=== PATIENT | female | born 1930 | race Caucasian/White ===

== ENCOUNTER 2016-11-04 11:04 | Inpatient (IN) | payer OTHER ==
[2016-11-04] MEDS ORDERED: NITROGLYCERIN 0.4 MG TAB.SUBL SL ONE (11:29)
[2016-11-04] MEDS ORDERED: ASPIRIN EC 325 MG TABLET.DR PO ONE (11:30)
--- NOTE | 2016-11-04 11:35 | ED Physician Documentation ---
General Adult - HISTORIAN Historian: patient - HPI Stated Complaint: nausea, vomiting, headache Chief Complaint: Nausea,Vomiting,Diarrhea Timing: still present Severity: mild Further Comments: yes (85 yo female presents via EMS with c/o headache, chest pressure and found to have elevated blood pressure by EMS. Pt has history of HTN she says but according to her records, does not take any blood pressure meds. She says her adult family home program manager has not come for 2 days and thus she had not had any of her PO medications at home. 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 pt c/o generalized headache with mild chest pressure and nausea. No SOA. Pt with known CAD) - ROS CONST: no problems - PAST HX Past History: AMI Other History: diabetes Type 2 Allergies/Adverse Reactions: Allergies Allergy/AdvReac Type Severity Reaction Status Date / Time prochlorperazine maleate Allergy Unknown Verified 11/04/16 11:21 [From Compazine] codeine [Codeine] Allergy Verified 11/04/16 11:21 prochlorperazine edisylate Allergy Verified 11/04/16 11:21 [From Compazine] - SOCIAL HX Smoking History: non-smoker - FAMILY HX Family History: Yes - VITAL SIGNS Vital Signs: Vital Signs Temp Pulse Resp BP Pulse Ox 97.8 F 78 18 228/113 95 11/04/16 11:22 11/04/16 11:22 11/04/16 11:22 11/04/16 11:22 11/04/16 11:22 - REVIEWED ASSESSMENTS Nursing Assessment Reviewed: Yes Vitals Reviewed: Yes Progress - Progress Progress: Initial blood pressure improved prior to admission, 177/78. Discussed with Dr Williamson, will admit ED Results Lab/Radiology - Orders Orders: ED Orders Category Date Time Status CHEST 1 VIEW [RAD] Stat Exams 11/04/16 Ordered CBC/PLATELET/DIFF Routine Lab 11/04/16 11:30 Received CMP [CMP] Routine Lab 11/04/16 11:30 Received TROPONIN I (cTnI) Stat Lab 11/04/16 11:30 Received Aspirin EC [Ecotrin] Med 11/04/16 11:30 Discontinued 325 mg PO NOW ONE Nitroglycerin [Nitroquick] Med 11/04/16 11:29 Discontinued 0.4 mg SL NOW ONE EKG WITH COMPARISON Stat Ther 11/04/16 Ordered General Adult Physical Exam - PHYSICAL EXAM GENERAL APPEARANCE: no distress EENT: ENT inspection normal, pharynx normal, JAMILA, TM's nml NECK: normal inspection RESPIRATORY: no resp distress, breath sounds normal CVS: reg rate & rhythm, heart sounds normal ABDOMEN: soft, no organomegaly, normal bowel sounds SKIN: warm/dry NEURO: oriented X3, CN's nml as tested, motor nml, sensation nml, mood/affect nml Discharge Clincal Impression: Hypertensive urgency Condition: Good Disposition: 09 ADMITTED INPATIENT Decision to Admit: NO Decision Time: 12:56
[2016-11-04 11:41] LABS: EOSINOPHILS % 0.3 % (0.0-6.8); LYMPHOCYTES # 0.7 # k/uL (0.6-4.0); MEAN CORPUSCULAR HEMOGLOBIN 33.3 pg (28.0-34.0); MONOCYTES # 0.2 # k/uL (0.0-0.9); MONOCYTES % 5.3 % (0.0-11.0); NEUTROPHILS # 3.3 # k/uL (1.4-7.7)
[2016-11-04] MEDS ORDERED: ONDANSETRON HCL/PF 4 MG/ 2ML VIAL IVP ONE (11:41)
[2016-11-04] MEDS ORDERED: ONDANSETRON HCL/PF 4 MG/ 2ML VIAL ONE (11:41)
[2016-11-04 11:52] LABS: eGFR (African) > 60; eGFR (Non-African) > 60
[2016-11-04] MEDS ORDERED: fentaNYL CITRATE/PF 100 MCG/ 2ML AMP IVP ONE (12:18)
[2016-11-04] MEDS ORDERED: LABETALOL HCL 100MG/20ML VIAL IVP STA (12:28)
--- NOTE | 2016-11-04 13:50 | History and Physical Report ---
History of Present Illnes - History of Present Illness Reason for Visit: Vomiting. History of Present Illness: Patient presented to the ER with n/v/d. She also noted headache and chest pressure. BP was in the 200's. When BP was lowered, patient felt much better. Unable to keep anything down the past few days. Lives alone. Has been in and out of nursing homes due to her inability to take care of herself. I talked to [facility], who has been taking care of her, who reports she has been doing ok at home with their help. She has not been on BP meds in several years but has a h/o HTN. She reports she hasn't taken any of her meds in 2 days because home health couldn't get there. She has had a long h/o falls and BP had been on the soft side, so BP meds discontinued to try to prevent falls from orthostatis. 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 negative: Fever Eyes: negative: pain ENT: negative: Nose Discharge Respiratory: negative: Cough, Shortness of Breath Cardiovascular: negative: Chest Pain Gastrointestinal: Nausea, Vomiting, Diarrhea. negative: Abdominal Pain Genitourinary: negative: Dysuria Musculoskeletal: Back Pain (chronic) Skin: negative: Rash Neurological: Weakness - Medications/Allergies Allergies/Adverse Reactions: Allergies Allergy/AdvReac Type Severity Reaction Status Date / Time prochlorperazine maleate Allergy Unknown Verified 11/04/16 11:21 [From Compazine] codeine [Codeine] Allergy Verified 11/04/16 11:21 prochlorperazine edisylate Allergy Verified 11/04/16 11:21 [From Compazine] Current Inpatient Medications: Current Inpatient Medications Acetaminophen (Tylenol) 650 mg PO Q6H PRN PRN Reason: Fever >101 Enoxaparin Sodium (Lovenox) 30 mg SQ QD [facility] Stop: 11/18/16 13:59 Sodium Chloride (Normal Saline) 1,000 mls @ 100 mls/hr IV Q10H [facility] Pantoprazole Sodium 40 mg/ (Sodium Chloride) 50 mls @ 100 mls/hr IV DAILY [facility] Metoprolol Tartrate (Lopressor) 25 mg PO BID [facility] Ondansetron HCl (Zofran 4 Mg/2 Ml) 4 mg IVP Q6H PRN PRN Reason: Nausea / Vomiting Exam - Exam General: Alert, Oriented to Person, Oriented to Place, Oriented to Time, Cooperative, No acute distress HEENT: Atraumatic, PERRLA, EOMI, Mouth Mucous membr. moist/[place], Nose Mucous membr. moist/[place] Neck: Normal Range of Motion Lungs: Clear to auscultation, Normal air movement, Speaks full Sentences Cardiovascular: Regular rate Abdomen: Normal bowel sounds, Soft, No tenderness Integumentary: Normal Extremities: No edema Neurological: Normal gait Psych/Mental Status: Mental status NL Assessment/Plan - Assessment/Plan (1) Diabetes Status: Acute Current Visit: Yes Plan: Monitor BS. (2) Hypertensive urgency Status: Acute Current Visit: Yes Plan: Monitor BP closely and adjust meds as needed. (3) Dehydration Status: Acute Current Visit: No (4) Gastroenteritis presumed infectious Status: Acute Current Visit: No Plan: Will do IVF. Zofran prn. CLD as tolerated. VTE Assessment - RISK FACTOR SCORE VTE RISK FACTOR SCORES: AGE OVER 60 YEARS, ACUTE INFECTION OTHER THEN SEPSIS, ANTICIPATED BED CONFINEMENT OR IMMOBILIZATION > 24 HOURS - RISK VTE HIGH RISK: SCORE OF 3-4 (RISK PROXIMAL DVT 4-8%) PROPHYLAXIS NEEDED
[2016-11-04] MEDS ORDERED: ENOXAPARIN SODIUM 40 MG/0.4 ML DISP.SYRIN SQ ONE (13:56)
[2016-11-04] MEDS ORDERED: PANTOPRAZOLE SODIUM INJ. 40 MG VIAL ONE (14:04)
[2016-11-04] MEDS ORDERED: 0.9 % SODIUM CHLORIDE 50 ML IV ONE (14:05)
[2016-11-04] MEDS: ENOXAPARIN SODIUM 30 MG/0.3 ML DISP.SYRIN SQ SCH (14:08)
[2016-11-04] MEDS: 0.9 % SODIUM CHLORIDE 1,000 ML IV SCH (14:08)
[2016-11-04] MEDS: METOPROLOL TARTRATE 50 MG TABLET PO SCH ×2 (14:09→20:14)
[2016-11-04] MEDS: PANTOPRAZOLE SODIUM 40 MG in 0.9 % SODIUM CHLORIDE 50 ML IV SCH (14:37)
[2016-11-04] MEDS: ACETAMINOPHEN 325 MG TABLET PO PRN (14:39)
[2016-11-04 15:51] VITALS: BMI 22.3
[2016-11-04] MEDS: ONDANSETRON HCL/PF 4 MG/ 2ML VIAL IVP PRN (17:48)
[2016-11-05] MEDS: ONDANSETRON HCL/PF 4 MG/ 2ML VIAL IVP PRN ×2 (00:42→17:01)
[2016-11-05] MEDS: 0.9 % SODIUM CHLORIDE 1,000 ML IV SCH ×3 (00:42→20:22)
[2016-11-05] MEDS: ACETAMINOPHEN 325 MG TABLET PO PRN ×2 (01:57→18:46)
[2016-11-05] MEDS ORDERED: SALINE FLUSH 10 ML DISP.SYRIN IVF ONE (05:37)
[2016-11-05 07:12] LABS: BASOPHILS % 0.3 (0.0-1.5); EOSINOPHILS % 0.4 % (0.0-6.8); LYMPHOCYTES # 1.3 # k/uL (0.6-4.0); MEAN CORPUSCULAR HEMOGLOBIN 33.3 pg (28.0-34.0); MONOCYTES # 0.2 # k/uL (0.0-0.9); MONOCYTES % 5.1 % (0.0-11.0); NEUTROPHILS # 2.7 # k/uL (1.4-7.7)
[2016-11-05 07:35] LABS: eGFR (African) > 60; eGFR (Non-African) > 60
--- NOTE | 2016-11-05 07:46 | Inpatient Progress Note ---
Subjective - Required Recertification Statement I anticipate X number of days because-include discharge plan: 2 - Review of Systems Subjective: Patient still very nauseated and unable to eat. BP remains high despite starting metoprolol. Norvasc started last night. No headache today. Objective - Exam Vitals and I&O: Vital Signs Temp 97.7 F 11/05/16 06:00 Pulse 60 11/05/16 06:00 Resp 20 11/05/16 06:00 BP 183/75 11/05/16 06:00 Pulse Ox 94 11/05/16 06:00 Intake & Output 11/04/16 11/04/16 11/05/16 11:59 23:59 11:59 Intake Total 60 1200 Output Total 125 400 Balance -65 800 Weight 55.338 kg Intake: IV 1200 Right Hand 1200 Oral 60 Output: Urine 125 400 Other: Voiding Method Toilet General: Alert, Oriented to Person, Oriented to Place, Oriented to Time, Cooperative, No acute distress Lungs: Clear to auscultation, Normal air movement, Speaks full Sentences Cardiovascular: Regular rate Abdomen: Normal bowel sounds, Soft, No tenderness - Results Results: Laboratory Results WBC 4.40 K/ul (4.00-12.00) 11/05/16 06:50 RBC 3.26 M/ul (3.90-5.20) L 11/05/16 06:50 Hgb 10.9 g/dL (12.0-16.0) L 11/05/16 06:50 Hct 33.2 % (34.5-46.5) L 11/05/16 06:50 MCV 101.9 fl (80.0-100.0) H 11/05/16 06:50 MCH 33.3 pg (28.0-34.0) 11/05/16 06:50 MCHC 32.7 g/dL (30.0-36.0) 11/05/16 06:50 RDW 13.0 % (11.3-14.3) 11/05/16 06:50 Plt Count 147 K/mm3 (130-400) 11/05/16 06:50 Neut % (Auto) 62.0 % (39.0-79.0) 11/05/16 06:50 Lymph % (Auto) 29.9 % (16.0-50.0) 11/05/16 06:50 [place] % (Auto) 5.1 % (0.0-11.0) 11/05/16 06:50 Eos % (Auto) 0.4 % (0.0-6.8) 11/05/16 06:50 Baso % (Auto) 0.3 (0.0-1.5) 11/05/16 06:50 Neut # 2.7 # k/uL (1.4-7.7) 11/05/16 06:50 Lymph # 1.3 # k/uL (0.6-4.0) 11/05/16 06:50 [place] # 0.2 # k/uL (0.0-0.9) 11/05/16 06:50 Eos # 0.0 # k/uL (0.0-0.6) 11/05/16 06:50 Baso # 0.0 # k/uL (0.0-0.5) 11/05/16 06:50 Reactive Lymphs % 2.3 % (0.0-5.0) 11/05/16 06:50 Reactive Lymphs # 0.1 # k/uL (0.0-0.8) 11/05/16 06:50 Sodium 142 mmol/L (136-145) 11/05/16 06:50 Potassium 4.2 mmol/L (3.5-5.0) 11/05/16 06:50 Chloride 110 mmol/L (98-110) 11/05/16 06:50 Carbon Dioxide 25 mmol/L (20-32) 11/05/16 06:50 BUN 18 mg/dL (10-26) 11/05/16 06:50 Creatinine 0.9 mg/dL (0.4-1.5) 11/05/16 06:50 Estimated Creat Clear 47 11/05/16 06:50 Est GFR ( Amer) > 60 (60-) 11/05/16 06:50 Est GFR (Non-Af Amer) > 60 (60-) 11/05/16 06:50 Glucose 152 mg/dL (70-99) H 11/05/16 06:50 Calcium 9.1 mg/dL (8.5-10.5) 11/05/16 06:50 Total Bilirubin 0.5 mg/dL (0.2-1.2) 11/04/16 11:30 AST 25 U/L (0-41) 11/04/16 11:30 ALT 12 U/L (0-45) 11/04/16 11:30 Alkaline Phosphatase 113 U/L (46-116) 11/04/16 11:30 Troponin I < 0.03 ng/mL (0.03-0.06) L 11/04/16 11:30 Total Protein 7.6 g/dL (6.0-8.5) 11/04/16 11:30 Albumin 4.6 g/dL (3.0-5.5) 11/04/16 11:30 Assessment/Plan - Assessment/Plan (1) Diabetes Status: Acute Current Visit: Yes (2) Hypertensive urgency Status: Acute Current Visit: Yes Plan: Add ARB today with h/o DM. (3) Dehydration Status: Acute Current Visit: No (4) Gastroenteritis presumed infectious Status: Acute Current Visit: No Plan: Cont. CLD as tolerated, IVF, IV PPI, and IV zofran.
--- NOTE | 2016-11-05 08:39 | Diagnostic Imaging Report ---
[facility] [address] [facility].[address] [id number] Report Submission Date: Nov 04, 2016 12:36:07 PM DATA ENTRY EMAIL PROCESSOR Patient Study Name: LEONARD MELGOZA Date: Nov 04, 2016 11:59:30 AM DATA ENTRY EMAIL PROCESSOR Modality Type: CR Gender: F Description: CHEST : [birth year] Institution: [facility] Physician CYRUS VASQUEZ - ER Chest -one view CLINICAL HISTORY: Chest pain. Hypertension. FINDINGS: Examination of the chest single portable AP view 11/04/2016 1159 hr with comparison to examination 03/31/2016 demonstrates cardiomegaly and aortic atherosclerosis. There are multiple sternotomy wires. Lungs are free of coalescent infiltrate. There is mild crowding of the vascular markings. Monitor leads superimpose the chest. IMPRESSION: Cardiomegaly and aortic atherosclerosis. Postoperative chest. No significant change. Electronically signed on Nov 04, 2016 12:36:07 PM DATA ENTRY EMAIL PROCESSOR by: René FOSTER
[2016-11-05] MEDS ORDERED: amLODIPine BESYLATE 5 MG TABLET PO SCH ×2 (09:00)
[2016-11-05] MEDS: PANTOPRAZOLE SODIUM 40 MG in 0.9 % SODIUM CHLORIDE 50 ML IV SCH (10:12)
[2016-11-05] MEDS: METOPROLOL TARTRATE 50 MG TABLET PO SCH ×2 (10:13→20:21)
[2016-11-05] MEDS: LOSARTAN POTASSIUM 50 MG TABLET PO SCH (10:18)
[2016-11-05] MEDS: ENOXAPARIN SODIUM 30 MG/0.3 ML DISP.SYRIN SQ SCH (14:16)
[2016-11-05] MEDS ORDERED: amLODIPine BESYLATE 5 MG TABLET PO ONE (21:22)
[2016-11-06] MEDS: 0.9 % SODIUM CHLORIDE 1,000 ML IV SCH ×2 (07:31→18:23)
[2016-11-06] MEDS: ONDANSETRON HCL/PF 4 MG/ 2ML VIAL IVP PRN ×2 (07:41→20:28)
[2016-11-06] MEDS: ACETAMINOPHEN 325 MG TABLET PO PRN ×2 (08:00→20:28)
[2016-11-06] MEDS ORDERED: hydrALAZINE HCL 20 MG/1 ML IVP ONE (08:04)
--- NOTE | 2016-11-06 08:08 | Inpatient Progress Note ---
Subjective - Required Recertification Statement I anticipate X number of days because-include discharge plan: 2 - Review of Systems Subjective: Patient still very nauseated and unable to eat. BP remains high high this am.. Reports headache and nausea. Objective - Exam Vitals and I&O: Vital Signs Temp 98.0 F 11/06/16 06:00 Pulse 66 11/06/16 06:00 Resp 18 11/06/16 06:00 BP 147/74 11/06/16 06:00 Pulse Ox 96 11/06/16 06:00 Intake & Output 11/05/16 11/05/16 11/06/16 11:59 23:59 11:59 Intake Total 5482 478 6557 Output Total 400 800 600 Balance 900 -700 1800 Intake: IV 1200 2400 Right Hand 1200 2400 Oral 100 100 Output: Urine 400 800 600 Other: # Voids 1 # Bowel Movements 0 General: Alert, Oriented to Person, Oriented to Place, Oriented to Time, Cooperative, Mild distress Lungs: Clear to auscultation, Normal air movement, Speaks full Sentences Cardiovascular: Regular rate - Results Results: Laboratory Results WBC 4.40 K/ul (4.00-12.00) 11/05/16 06:50 RBC 3.26 M/ul (3.90-5.20) L 11/05/16 06:50 Hgb 10.9 g/dL (12.0-16.0) L 11/05/16 06:50 Hct 33.2 % (34.5-46.5) L 11/05/16 06:50 MCV 101.9 fl (80.0-100.0) H 11/05/16 06:50 MCH 33.3 pg (28.0-34.0) 11/05/16 06:50 MCHC 32.7 g/dL (30.0-36.0) 11/05/16 06:50 RDW 13.0 % (11.3-14.3) 11/05/16 06:50 Plt Count 147 K/mm3 (130-400) 11/05/16 06:50 Neut % (Auto) 62.0 % (39.0-79.0) 11/05/16 06:50 Lymph % (Auto) 29.9 % (16.0-50.0) 11/05/16 06:50 [place] % (Auto) 5.1 % (0.0-11.0) 11/05/16 06:50 Eos % (Auto) 0.4 % (0.0-6.8) 11/05/16 06:50 Baso % (Auto) 0.3 (0.0-1.5) 11/05/16 06:50 Neut # 2.7 # k/uL (1.4-7.7) 11/05/16 06:50 Lymph # 1.3 # k/uL (0.6-4.0) 11/05/16 06:50 [place] # 0.2 # k/uL (0.0-0.9) 11/05/16 06:50 Eos # 0.0 # k/uL (0.0-0.6) 11/05/16 06:50 Baso # 0.0 # k/uL (0.0-0.5) 11/05/16 06:50 Reactive Lymphs % 2.3 % (0.0-5.0) 11/05/16 06:50 Reactive Lymphs # 0.1 # k/uL (0.0-0.8) 11/05/16 06:50 Sodium 142 mmol/L (136-145) 11/05/16 06:50 Potassium 4.2 mmol/L (3.5-5.0) 11/05/16 06:50 Chloride 110 mmol/L (98-110) 11/05/16 06:50 Carbon Dioxide 25 mmol/L (20-32) 11/05/16 06:50 BUN 18 mg/dL (10-26) 11/05/16 06:50 Creatinine 0.9 mg/dL (0.4-1.5) 11/05/16 06:50 Estimated Creat Clear 47 11/05/16 06:50 Est GFR ( Amer) > 60 (60-) 11/05/16 06:50 Est GFR (Non-Af Amer) > 60 (60-) 11/05/16 06:50 Glucose 152 mg/dL (70-99) H 11/05/16 06:50 Calcium 9.1 mg/dL (8.5-10.5) 11/05/16 06:50 Total Bilirubin 0.5 mg/dL (0.2-1.2) 11/04/16 11:30 AST 25 U/L (0-41) 11/04/16 11:30 ALT 12 U/L (0-45) 11/04/16 11:30 Alkaline Phosphatase 113 U/L (46-116) 11/04/16 11:30 Troponin I < 0.03 ng/mL (0.03-0.06) L 11/04/16 11:30 Total Protein 7.6 g/dL (6.0-8.5) 11/04/16 11:30 Albumin 4.6 g/dL (3.0-5.5) 11/04/16 11:30 Assessment/Plan - Assessment/Plan (1) Diabetes Status: Acute Current Visit: Yes (2) Hypertensive urgency Status: Acute Current Visit: Yes Plan: BP 230 so IV hydralzine ordered. Before given, BP down to 208. After injection , down to 170. Will start po hydralazine and increase lopressor. (3) Dehydration Status: Acute Current Visit: No (4) Gastroenteritis presumed infectious Status: Acute Current Visit: No Plan: Improving.
[2016-11-06] MEDS: METOPROLOL TARTRATE 50 MG TABLET PO SCH ×2 (09:08→20:25)
[2016-11-06] MEDS: LOSARTAN POTASSIUM 50 MG TABLET PO SCH (09:10)
[2016-11-06] MEDS: PANTOPRAZOLE SODIUM 40 MG in 0.9 % SODIUM CHLORIDE 50 ML IV SCH (09:11)
[2016-11-06] MEDS ORDERED: LOSARTAN POTASSIUM 50 MG TABLET PO SCH (12:48)
[2016-11-06] MEDS: ENOXAPARIN SODIUM 30 MG/0.3 ML DISP.SYRIN SQ SCH (12:54)
[2016-11-06] MEDS ORDERED: HYDRALAZINE HCL 25 MG TABLET PO SCH (13:00)
[2016-11-06] MEDS ORDERED: MORPHINE SULFATE 2 MG/ML DISP.SYRIN IVP ONE (14:43)
[2016-11-06] MEDS: HYDRALAZINE HCL 25 MG TABLET PO SCH ×2 (16:43→20:26)
[2016-11-06] MEDS ORDERED: amLODIPine BESYLATE 5 MG TABLET PO ONE (20:57)
[2016-11-06] MEDS ORDERED: amLODIPine BESYLATE 5 MG TABLET PO SCH (21:00)
[2016-11-07] MEDS: 0.9 % SODIUM CHLORIDE 1,000 ML IV SCH ×2 (04:19→13:10)
[2016-11-07] MEDS ORDERED: NITROGLYCERIN 0.4 MG TAB.SUBL SL ONE (05:01)
[2016-11-07] MEDS ORDERED: NITROGLYCERIN 0.4 MG TAB.SUBL SL STA (05:27)
[2016-11-07] MEDS: ACETAMINOPHEN 325 MG TABLET PO PRN (05:28)
[2016-11-07 05:55] LABS: BASOPHILS % 0.2 (0.0-1.5); EOSINOPHILS % 0.5 % (0.0-6.8); LYMPHOCYTES # 1.3 # k/uL (0.6-4.0); MONOCYTES # 0.4 # k/uL (0.0-0.9); MONOCYTES % 6.5 % (0.0-11.0); NEUTROPHILS # 4.4 # k/uL (1.4-7.7)
[2016-11-07 06:24] LABS: eGFR (African) > 60; eGFR (Non-African) > 60
[2016-11-07] MEDS ORDERED: POTASSIUM CHLORIDE 20 MEQ TABLET.ER PO ONE ×2 (07:53)
--- NOTE | 2016-11-07 08:11 | Inpatient Progress Note ---
Subjective - Review of Systems Subjective: Patient still very nauseated and unable to eat. BP remains high high this am.. Reports headache and nausea. Objective - Exam Vitals and I&O: Vital Signs Temp 98.6 F 11/07/16 06:00 Pulse 63 11/07/16 06:00 Resp 20 11/07/16 06:00 BP 124/73 11/07/16 06:00 Pulse Ox 96 11/07/16 06:00 Intake & Output 11/06/16 11/06/16 11/07/16 11:59 23:59 11:59 Intake Total 2400 360 1200 Output Total 600 100 Balance 5071 732 9402 Weight 55.338 kg Intake: IV 2400 1200 Right Hand 2400 1200 Oral 360 Output: Urine 600 100 Other: Voiding Method Toilet Toilet # Voids 1 2 - Results Results: Laboratory Results WBC 6.20 K/ul (4.00-12.00) 11/07/16 05:30 RBC 3.54 M/ul (3.90-5.20) L 11/07/16 05:30 Hgb 11.7 g/dL (12.0-16.0) L 11/07/16 05:30 Hct 35.4 % (34.5-46.5) 11/07/16 05:30 MCV 100.1 fl (80.0-100.0) H 11/07/16 05:30 MCH 33.0 pg (28.0-34.0) 11/07/16 05:30 MCHC 33.0 g/dL (30.0-36.0) 11/07/16 05:30 RDW 13.0 % (11.3-14.3) 11/07/16 05:30 Plt Count 190 K/mm3 (130-400) 11/07/16 05:30 Neut % (Auto) 69.8 % (39.0-79.0) 11/07/16 05:30 Lymph % (Auto) 21.3 % (16.0-50.0) 11/07/16 05:30 [place] % (Auto) 6.5 % (0.0-11.0) 11/07/16 05:30 Eos % (Auto) 0.5 % (0.0-6.8) 11/07/16 05:30 Baso % (Auto) 0.2 (0.0-1.5) 11/07/16 05:30 Neut # 4.4 # k/uL (1.4-7.7) 11/07/16 05:30 Lymph # 1.3 # k/uL (0.6-4.0) 11/07/16 05:30 [place] # 0.4 # k/uL (0.0-0.9) 11/07/16 05:30 Eos # 0.0 # k/uL (0.0-0.6) 11/07/16 05:30 Baso # 0.0 # k/uL (0.0-0.5) 11/07/16 05:30 Reactive Lymphs % 1.6 % (0.0-5.0) 11/07/16 05:30 Reactive Lymphs # 0.1 # k/uL (0.0-0.8) 11/07/16 05:30 Sodium 141 mmol/L (136-145) 11/07/16 05:30 Potassium 2.9 mmol/L (3.5-5.0) L 11/07/16 05:30 Chloride 112 mmol/L (98-110) H 11/07/16 05:30 Carbon Dioxide 25 mmol/L (20-32) 11/07/16 05:30 BUN 10 mg/dL (10-26) 11/07/16 05:30 Creatinine 0.7 mg/dL (0.4-1.5) 11/07/16 05:30 Estimated Creat Clear 61 11/07/16 05:30 Est GFR ( Amer) > 60 (60-) 11/07/16 05:30 Est GFR (Non-Af Amer) > 60 (60-) 11/07/16 05:30 Glucose 154 mg/dL (70-99) H 11/07/16 05:30 Calcium 7.8 mg/dL (8.5-10.5) L 11/07/16 05:30 Total Bilirubin 0.5 mg/dL (0.2-1.2) 11/04/16 11:30 AST 25 U/L (0-41) 11/04/16 11:30 ALT 12 U/L (0-45) 11/04/16 11:30 Alkaline Phosphatase 113 U/L (46-116) 11/04/16 11:30 Creatine Kinase 53 U/L (0-225) 11/07/16 05:30 Troponin I < 0.03 ng/mL (0.03-0.06) L 11/04/16 11:30 Total Protein 7.6 g/dL (6.0-8.5) 11/04/16 11:30 Albumin 4.6 g/dL (3.0-5.5) 11/04/16 11:30 Assessment/Plan - Assessment/Plan (1) Diabetes Status: Acute Current Visit: Yes (2) Hypertensive urgency Status: Acute Current Visit: Yes (3) Dehydration Status: Acute Current Visit: No (4) Gastroenteritis presumed infectious Status: Acute Current Visit: No
[2016-11-07] MEDS ORDERED: POTASSIUM CHLORIDE 20 MEQ TABLET.ER ONE (08:30)
[2016-11-07] MEDS: HYDRALAZINE HCL 25 MG TABLET PO SCH ×2 (08:32→13:12)
[2016-11-07] MEDS ORDERED: amLODIPine BESYLATE 5 MG TABLET PO SCH (09:00)
[2016-11-07] MEDS: PANTOPRAZOLE SODIUM 40 MG in 0.9 % SODIUM CHLORIDE 50 ML IV SCH (09:05)
[2016-11-07] MEDS: ONDANSETRON HCL/PF 4 MG/ 2ML VIAL IVP PRN (09:15)
[2016-11-07] MEDS ORDERED: SALINE FLUSH 10 ML DISP.SYRIN IVF ONE (11:49)
[2016-11-07 12:11] VITALS: BP 159/74
--- NOTE | 2016-11-07 12:19 | Diagnostic Imaging Report ---
[facility] [address] [facility].[address] [address] Report Submission Date: Nov 07, 2016 12:07:13 PM COUNTER DISH CARRIER Patient Study Name: LEONARD MELGOZA Date: Nov 07, 2016 10:53:38 AM COUNTER DISH CARRIER Modality Type: CT\SR Gender: F Description: CT ABD & PELVIS W/ CON : [birth year] Institution: [facility] Physician [place]/MED SURG CT of abdomen pelvis with oral and IV contrast CLINICAL HISTORY: Abdominal pain TECHNIQUE: [address] slices during administration of nonionic contrast and after oral contrast. Coronal reconstructions were performed. Sagittal reconstructions were also performed. FINDINGS: The heart is enlarged. There are findings of median sternotomy. Minimal atelectasis and pleural thickening are present in the left lung base. There is a hiatus hernia. Calcified granulomas are present in the spleen. The liver is unremarkable. The gallbladder is distended with gallstones. A 2.2 cm peripherally calcified lesion arises from the upper pole the right kidney. A cyst arises from the upper pole left kidney. The pancreas is unremarkable. There is aortoiliac vascular calcification. Motion artifact somewhat blurs the upper abdominal organs. A cyst in the right kidney measures 2-3 cm. There is no retroperitoneal mass. The appendix is normal. The uterus is been removed. A right hip arthroplasty is present and create streak artifact overlying the pelvis. Lumbar spondylosis is present. There is a burst fracture of L1. IMPRESSION: Distended gallbladder with gallstones raising the possibility of cholecystitis Cardiomegaly and findings of median sternotomy Hiatus hernia Calcified 2.2 cm lesion arising from the upper pole right kidney. A cyst arises from the left kidney. There is an intra cortical cyst in the right kidney. Hysterectomy Burst fracture of L1 Right hip arthroplasty creating streak artifact over the pelvis Electronically signed on Nov 07, 2016 12:07:13 PM COUNTER DISH CARRIER by: Preston FOSTER
--- NOTE | 2016-11-07 12:41 | Discharge Summary ---
Discharge Summary - Discharge Sumary History of Present Illness: See H&P. Admitted from ER for n/v/d and elevated BP. Condition at Discharge: Stable Consultations this Visit: None Procedures this Visit: None Allergies/Adverse Reactions: Allergies Allergy/AdvReac Type Severity Reaction Status Date / Time prochlorperazine maleate Allergy Unknown Verified 11/04/16 11:21 [From Compazine] codeine [Codeine] Allergy Verified 11/04/16 11:21 prochlorperazine edisylate Allergy Verified 11/04/16 11:21 [From Compazine] Patient Problems: Current Active Problems Problem Status Onset Diabetes Acute Hypertensive urgency Acute Discharge Summary: Patient was admitted for n/v/d for IVF and antiemetics for suspected viral gastroenteritis. BP noted to be elevated in ER. Patient has a h/o HTN but has been off meds for some time due to BP being normal. Started on metoprolol tartrate in the ER. Losartan was added up to 100 mg daily due to h/o DM. BP went to 230/120 and IV hydralazine was given. BP came down to 170/90 so po hydralazine was started. After discussion with Dr. Card, amlodipine was started. Patient continued to "not feel well" but could not elicit any symptoms but nausea. Abdominal exam revealed diffuse tenderness. CT scan performed and showed distended gallbladder with gallstones, raising the possibility of cholecystitis. Patient will be transferred to the [facility] for treatment of this. Hospital Course: Discharge Dx: Cholecystitis; Hypertensive urgency; AVR; DM. Disposition: [facility]
[2016-11-07] MEDS: ENOXAPARIN SODIUM 30 MG/0.3 ML DISP.SYRIN SQ SCH (13:12)
[2016-11-07 22:20] LABS: TROPONIN T <0.010 ng/mL (<0.010)
== END 2016-11-07 13:47 | disposition short-term general hospital (02) | DRG 446 ==
LOC: ED 11:04 → SOUTH 13:10 → INTOOBSV 13:10 → OBSVTOIN 13:10 → UNDOADMOB 13:10
PROVIDERS: ADMIT Family Medicine; ATTEND Family Medicine
DX: K81.9 Cholecystitis, unspecified (principal); I10 Essential (primary) hypertension; E11.9 Type 2 diabetes mellitus without complications
CPT/HCPCS: 36415; 71010; 74177; 80048; 80053; 82550; 84484; 85025; 99222; 99232; 99238; 99283; A9698; J0360; J1650; J2270; J2405; J3010; J3490; A9270; J7030; Q9966; S1016

== ENCOUNTER 2016-11-23 17:45 | Observation (INO) | payer OTHER ==
[2016-11-23] MEDS ORDERED: 0.9 % SODIUM CHLORIDE 1,000 ML IV ONE (17:57)
--- NOTE | 2016-11-23 18:02 | ED Physician Documentation ---
General Adult - HISTORIAN Historian: patient, paramedics, other ([facility] staff, Dr Shankar) - HPI Chief Complaint: General Adult Onset: hours Timing: worse Further Comments: yes (85 year old female patient brought in by EMS with altered mental status, fever, cough and weakness. Temp 100.4 at 1500, was given 650mg of Tylenol po. RA sat 82% on EMS arrival. 94% on arrival at 2L NC. [facility] staff report patient's usually AAOx3. DNR) - ROS CONST: fever, weakness, chills EYES/ENT: nasal congestion. denies: problems with vision, sore throat, nasal drainage CVS/RESP: shortness of breath, cough. denies: chest pain GI/: none MS/SKIN/LYMPH: none NEURO/PSYCH: difficulty walking, difficulty with speech. denies: headache - PAST HX Past History: hypertension, other (Dementia, Fibromyalgia) Other History: diabetes Type 2, other (GERD, b12 def, anxiety, Low back pain, HLD) Surgeries/Procedures: cardiac bypass Allergies/Adverse Reactions: Allergies Allergy/AdvReac Type Severity Reaction Status Date / Time prochlorperazine maleate Allergy Unknown Verified 11/23/16 19:14 [From Compazine] codeine [Codeine] Allergy Verified 11/23/16 19:14 prochlorperazine edisylate Allergy Verified 11/23/16 19:14 [From Compazine] - SOCIAL HX Smoking History: non-smoker - FAMILY HX Family History: No - VITAL SIGNS Vital Signs: Vital Signs Temp Pulse Resp BP Pulse Ox 159/74 11/07/16 10:00 - REVIEWED ASSESSMENTS Nursing Assessment Reviewed: Yes Vitals Reviewed: Yes Progress - Progress Progress: [address] Shankar, will keep observation due to hypoxia requiring oxygen, continue neb treatments and IV fluids, and monitor neuro checks. ED Results Lab/Radiology - Radiology Radiology Impressions: Head CT without contrast CLINICAL HISTORY: Altered mental status. Confusion. TECHNIQUE: CT examination of brain is performed in contiguous axial slices without the use of contrast. Sagittal and coronal reconstructions are performed by the technologist. FINDINGS: 4th ventricle lies in a normal midline position. The ventricles and sulci are prominent secondary to atrophy. Chronic ischemic changes are present in the periventricular regions. There is no hypodense or hyperdense mass or intracranial hemorrhage. Intracranial atherosclerosis is demonstrated. IMPRESSION: Atrophy and chronic small vessel ischemic changes. Intracranial atherosclerosis. No acute intracranial changes. Chest -one view CLINICAL HISTORY: Mental status changes. Difficulty breathing. Cough and fever. FINDINGS: Examination of the chest in single portable AP view 11/23/2016 1901 hr with comparison to examination 11/04/2016 demonstrates again postoperative changes with multiple sternotomy wires. Cardiac silhouette is enlarged and the aorta is atherosclerotic. Monitor leads superimpose the chest. There are minimal discoid changes in the mid lung zones. There is no coalescent infiltrate. IMPRESSION: Cardiomegaly and aortic atherosclerosis. Postoperative changes. Discoid changes in the mid lung zones - Orders Orders: ED Orders Category Date Time Status Continuous EKG monitoring Q30M Care 11/23/16 17:56 Active Continuous Pulse Oximetry Q30M Care 11/23/16 17:[address] Saline Lock/IV NOW Care 11/23/16 17:56 Active CHEST 1 VIEW [RAD] Stat Exams 11/23/[address] BRAIN W/O CONTRAST Stat Exams 11/23/16 Ordered BLOOD CULTURE Stat Lab 11/23/16 Ordered CBC/PLATELET/DIFF Stat Lab 11/23/16 17:56 Ordered CMP Stat Lab 11/23/16 17:56 Ordered INFLUENZA A&B Stat Lab 11/23/16 Uncollected TROPONIN I (cTnI) Stat Lab 11/23/16 17:56 Ordered UA W/MICRO IF INDICATED Stat Lab 11/23/16 17:56 Ordered 0.9 % Sodium Chloride [Normal Saline] 1,000 ml Med 11/23/16 17:57 Active IV NOW Oxygen Daily Oxygen 11/23/16 18:00 Ordered General Adult Physical Exam - PHYSICAL EXAM GENERAL APPEARANCE: moderate distress EENT: eye inspection normal, ENT inspection normal, pharynx normal, JAMILA, no nystagmus, TM's nml, dry mucous membranes RESPIRATORY: chest non-tender, other (deminished in bases bilaterally, course ) CVS: reg rate & rhythm, heart sounds normal, equal pulses, no murmur, no gallop , PMI nml, no JVD, no friction rub, 24 ABDOMEN: soft, no organomegaly, normal bowel sounds, no abdominal bruit, no distension SKIN: warm/dry, pallor EXTREMITIES: non-tender, no evidence of injury, no edema, other (generalized weakness) NEURO: CN's nml as tested, motor nml, sensation nml, mood/affect nml, other ( AAOx2, reorients easily, speech slurred, no focal deficit) Discharge Clincal Impression: Cough, Generalized weakness, Hypoxemia requiring supplemental oxygen, Cardiomegaly Referrals: Mary Williamson MD [Primary Care Provider] - 2 Days Condition: Stable Disposition: 01 HOME, SELF-CARE Decision to Admit: [id number] Decision Time: 20:09
[2016-11-23 19:13] LABS: eGFR (African) > 60; eGFR (Non-African) > 60
[2016-11-23 19:17] LABS: BASOPHILS % 0.4 (0.0-1.5); MEAN CORPUSCULAR HEMOGLOBIN 32.7 pg (28.0-34.0); MEAN CORPUSCULAR VOLUME 103.4 fl (80.0-100.0); MONOCYTES % 2.8 % (0.0-11.0); NEUTROPHILS # 5.8 # k/uL (1.4-7.7)
[2016-11-23] MEDS ORDERED: IPRATROPIUM/ALBUTEROL SULFATE 3 ML AMPUL.NEB NEB PRN (20:24)
--- NOTE | 2016-11-23 20:30 | Diagnostic Imaging Report ---
[facility] [address] [facility] [address] [place], [place]. [address] ~ ~ ~ ~ Report Submission Date: Nov 23, 2016 7:11:49 PM WILDLIFE REFUGE MANAGER Patient ~ Study Name: LEONARD MELGOZA ~ Date: Nov 23, 2016 7:01:18 PM WILDLIFE REFUGE MANAGER ~ Modality Type: CR Gender: F ~ Description: CHEST : [birth year] ~ Institution: [facility] Physician: NERY VELÁZQUEZ ~ ~ ~ ~ Chest -one view CLINICAL HISTORY: ~ Mental status changes. ~Difficulty breathing. ~Cough and fever. ~ FINDINGS: ~ Examination of the chest in single portable AP view 11/23/2016 1901 hr with comparison to examination 11/04/2016 demonstrates again postoperative changes with multiple sternotomy wires. ~Cardiac silhouette is enlarged and the aorta is atherosclerotic. ~Monitor leads superimpose the chest. ~There are minimal discoid changes in the mid lung zones. ~There is no coalescent infiltrate. IMPRESSION: ~ Cardiomegaly and aortic atherosclerosis. ~ Postoperative changes. ~ Discoid changes in the mid lung zones. ~ Electronically signed on Nov 23, 2016 7:11:49 PM WILDLIFE REFUGE MANAGER by: René FOSTER
[2016-11-23] MEDS ORDERED: BENZONATATE 100 MG CAPSULE PO PRN (20:49)
[2016-11-23] MEDS ORDERED: methylPREDNISolone SOD SUCC 125 MG/2 ML VIAL IVP ONE (20:49)
[2016-11-23 22:07] VITALS: BMI 22.3
[2016-11-23] MEDS: IPRATROPIUM/ALBUTEROL SULFATE 3 ML AMPUL.NEB NEB SCH (22:20)
[2016-11-23] MEDS: 0.9 % SODIUM CHLORIDE 1,000 ML IV SCH (22:50)
[2016-11-23] MEDS: OXYBUTYNIN CHLORIDE 5 MG TABLET PO SCH (23:01)
[2016-11-23] MEDS: PREGABALIN 50 MG CAPSULE PO SCH (23:02)
[2016-11-24] MEDS: IPRATROPIUM/ALBUTEROL SULFATE 3 ML AMPUL.NEB NEB SCH ×4 (03:19→23:06)
[2016-11-24] MEDS ORDERED: SALINE FLUSH 10 ML DISP.SYRIN IVF ONE ×3 (08:34→19:58)
[2016-11-24] MEDS ORDERED: methylPREDNISolone SOD SUCC 125 MG/2 ML VIAL IVP ONE (09:00)
[2016-11-24] MEDS: OXYBUTYNIN CHLORIDE 5 MG TABLET PO SCH ×2 (11:00→20:07)
[2016-11-24] MEDS: 0.9 % SODIUM CHLORIDE 1,000 ML IV SCH ×2 (11:00→12:22)
[2016-11-24] MEDS: PREGABALIN 50 MG CAPSULE PO SCH ×2 (11:03→20:07)
[2016-11-24] MEDS ORDERED: 0.9 % SODIUM CHLORIDE 1,000 ML IV ONE (12:21)
--- NOTE | 2016-11-24 13:39 | Diagnostic Imaging Report ---
[facility] [address] [facility].[address] [address] Report Submission Date: Nov 24, 2016 1:25:57 PM WRAPPER HAND Patient Study Name: LEONARD MELGOZA Date: Nov 24, 2016 1:03:39 PM WRAPPER HAND Modality Type: CR Gender: F Description: CHEST : [birth year] Institution: [facility] Physician: ROBERT NEELY Portable view chest. Clinical history: Dyspnea Findings: The heart size is mildly enlarged. There is pulmonary venous congestion. The No pleural effusion, pneumothorax or alveolar consolidation. Impression: Mild cardiomegaly with pulmonary venous congestion Electronically signed on Nov 24, 2016 1:25:57 PM WRAPPER HAND by: Dontae FOSTER
--- NOTE | 2016-11-24 14:20 | History and Physical Report ---
History of Present Illnes - History of Present Illness Reason for Visit: Dyspnea History of Present Illness: 85-year-old white female who is a resident at [facility]. For approximately 24 hours prior to admission. Patient was becoming more lethargic and having increasing dyspnea and shortness of breath. There is some question if the patient was running a low-grade fever. Patient seemed to have a productive sounding cough. Patient was subsequently seen in the ED for evaluation. Patient was felt to be having some hypoxia with possible COPD and admitted to [facility]. She continues to have some hypoxemia, and course rhonci with a few rales in the right base. Repeat CXR did not show any infiltrate, possible some mild pulmonary congestion. WBC count has decreased even with steroid therapy with a left shift. Patient was admitted to acute care for COPD exacerbation, possible aspiration/pneumonia developing. - Past Medical History Cardiac: CAD, HTN, Hyperlipidemia, Other (history of cardiomegally) RESERVATION MANAGER: CVA (? right), Other (lumbar spinal stenosis) Heme/Onc: Other (Megablastic anemia) Psych: Anxiety Musculoskeletal: Chronic low back pain Rheumatologic: Fibromyalgia Renal/: Other (Renal Mass) Endocrine: Diabetes (type 2) - Past Surgical History Past Surgical History: Cataract Removal, Other (benign tumor removed from her neck, s/p aortic valve replacement with tissue prosthesis, left carotid endarterectomy) - Past Family History Mother Family History: Father Family History: - Past Social History Smoke: Quit Alcohol: None Drugs: None Lives: Alone - Health Maintenance Health Maintenance: Influenza Vaccine, Pneumococcal Vaccine (08/22/14) Influenza Vaccine: Current for this Influenza Season Pneumonia Vaccine: Yes Resuscitation Status: Resusciation Status Resuscitation Status Do Not Resuscitate - Unable to Obtain History Unable to Obtain: Yes Review of Systems - Review of Systems Constitutional: Fever, Weakness. negative: Chills Eyes: negative: pain, vision change ENT: negative: Ear Discharge, Nose Discharge, Nose Congestion Respiratory: negative: Cough, Dry, Shortness of Breath, Hemoptysis, SOB with Excertion Cardiovascular: negative: Chest Pain, Paroxysmal Noc. Dyspnea Gastrointestinal: negative: Nausea, Vomiting, Abdominal Pain, Diarrhea, Constipation, Melena, Hematochezia Genitourinary: Incontinence. negative: Dysuria, Frequency, Hematuria Musculoskeletal: Other (unknown) Skin: negative: Rash, Lesions Neurological: Confusion. negative: Weakness, Numbness, Change in Speech - Medications/Allergies Allergies/Adverse Reactions: Allergies Allergy/AdvReac Type Severity Reaction Status Date / Time prochlorperazine maleate Allergy Unknown Verified 11/23/16 19:14 [From Compazine] codeine [Codeine] Allergy Verified 11/23/16 19:14 prochlorperazine edisylate Allergy Verified 11/23/16 19:14 [From Compazine] Current Inpatient Medications: Current Inpatient Medications Albuterol/Ipratropium (Duoneb) 3 ml NEB Q6H [facility] Last Admin: 11/24/16 09:06 Dose: 3 ml Benzonatate (Tessalon) 100 mg PO TID PRN PRN Reason: Cough Glipizide (Glucotrol) 5 mg PO BID [facility] Last Admin: 11/24/16 11:02 Dose: Not Given Sodium Chloride (Normal Saline) 1,000 mls @ 75 mls/hr IV Q10H [facility] Last Admin: 11/24/16 12:22 Dose: 75 mls/hr Insulin Human Regular (Humulin R) 0 - 12 unit SQ CHEMX3 MAITE PRN Reason: Protocol Methylprednisolone Sodium Succinate (Solu-Medrol) 62.5 mg IVP DAILY ONE Stop: 11/24/16 09:01 Last Admin: 11/24/16 09:02 Dose: 62.5 mg Methylprednisolone Sodium Succinate (Solu-Medrol) 62.5 mg IVP NOW ONE Stop: 11/23/16 20:50 Last Admin: 11/23/16 21:58 Dose: 62.5 mg Miscellaneous (Chem Sticks) 1 each CHEMQID [facility] Oxybutynin Chloride (Ditropan) 5 mg PO BID [facility] Last Admin: 11/24/16 11:00 Dose: Not Given Pregabalin (Lyrica) 100 mg PO BID [facility] Last Admin: 11/24/16 11:03 Dose: Not Given Exam - Exam Vital Signs: Vital Signs (72 hours) 11/23/16 11/23/16 11/23/16 21:00 21:12 21:30 Temperature 98.5 F Pulse Rate 73 75 Pulse Rate [ 71 Pulse ox] Pulse Rate [ Right] Respiratory 24 Rate Blood Pressure 139/71 [Left Arm] Blood Pressure 179/77 [Right Arm] O2 Sat by Pulse 93 93 94 Oximetry 11/23/16 11/24/16 11/24/16 22:00 00:24 02:00 Temperature 98.5 F 98.3 F Pulse Rate 76 74 Pulse Rate [ 71 84 Pulse ox] Pulse Rate [ Right] Respiratory Rate Blood Pressure 139/71 149/71 [Left Arm] Blood Pressure 179/77 149/71 [Right Arm] O2 Sat by Pulse 94 93 94 Oximetry 11/24/16 11/24/16 11/24/16 04:00 06:00 09:18 Temperature 98.3 F 97.8 F Pulse Rate 74 Pulse Rate [ 74 Pulse ox] Pulse Rate [ 78 Right] Respiratory 22 18 Rate Blood Pressure 141/64 [Left Arm] Blood Pressure 129/66 [Right Arm] O2 Sat by Pulse 94 95 92 Oximetry 11/24/16 13:20 Temperature 97.7 F Pulse Rate Pulse Rate [ Pulse ox] Pulse Rate [ 94 H Right] Respiratory 22 Rate Blood Pressure [Left Arm] Blood Pressure 147/94 [Right Arm] O2 Sat by Pulse 96 Oximetry General: Oriented to Person (is mildly lethargic, but I do not know her baseline. ), Mild distress HEENT: Atraumatic, PERRLA, Mouth Mucous membr. moist/[place], Nose Mucous membr. moist/[place] Neck: Normal Range of Motion. No: Stridor, Lymphadenopathy Carotids: small bruit on right Thyroid: WNL Lungs: Normal air movement, Speaks full Sentences, Wheezes (mild intermittent bilat), Rales (right base), Rhonchi (scattered bialterally) Cardiovascular: Regular rate, Normal S1, Normal S2, No murmurs. No: Gallops Murmur: Systolic Murmur Murmur Location: Left Sternal Boarder Heart Murmur Grade: III Abdomen: Normal bowel sounds, Soft, No tenderness, No hepatospenomegaly, No masses Integumentary: Normal, [place], Warm, Dry Extremities: No clubbing, No cyanosis, No edema, Normal pulses Neurological: Strength Equal Bilat, Normal tone, Sensation intact, Cranial nerves 3-12 NL Psych/Mental Status: No: Mental status NL (does not verbalize or follow commands well), Mood NL, Appropriate Affect Assessment/Plan - Assessment/Plan (1) Bronchitis with bronchospasm Status: Acute Current Visit: Yes Assessment: No infiltrate on chest x-ray, believe patient is having some bronchitis with left shift in WBC, with some bronchospams, possibly due to aspiration. (2) Diabetes Status: Chronic Current Visit: No Qualifiers: Diabetes mellitus type: type 2 Diabetes mellitus complication status: without complication Diabetes mellitus long term care administrator insulin use: without long term care administrator use Qualified Code(s): E11.9 - Type 2 diabetes mellitus without complications Assessment: Will start patient on sliding scale insulin, monitor blood sugar with steroid therapy (3) Hyperkalemia Status: Acute Current Visit: Yes Assessment: Patient is not on any potassium supplement, ELIZABETH or ARB. CO2 OK does not appear to be in acidosis. Will monitor. VTE Assessment - RISK FACTOR SCORE VTE RISK FACTOR SCORES: AGE OVER 60 YEARS, ACUTE RESPIRATORY FAILURE/SEVERE COPD - RISK VTE MODERATE RISK: SCORE OF 2 (RISK PROXIMAL DVT 2-4%) PROPHYAXIS NEEDED
[2016-11-24] MEDS: INSULIN REGULAR, HUMAN 100 UNIT/ML 3ML VIAL SQ SCH (17:09)
[2016-11-24 18:48] LABS: BASOPHILS % 0.1 (0.0-1.5); EOSINOPHILS % 0.4 % (0.0-6.8); MEAN CORPUSCULAR HEMOGLOBIN 32.9 pg (28.0-34.0); MEAN CORPUSCULAR VOLUME 106.6 fl (80.0-100.0); MONOCYTES % 1.9 % (0.0-11.0); NEUTROPHILS # 2.9 # k/uL (1.4-7.7)
[2016-11-24 19:19] LABS: eGFR (African) > 60; eGFR (Non-African) > 60
[2016-11-24] MEDS ORDERED: INSULIN REGULAR, HUMAN 100 UNIT/ML 3ML VIAL SQ ONE (19:50)
[2016-11-24] MEDS ORDERED: AZITHROMYCIN 500 MG VIAL IV ONE (19:57)
[2016-11-24] MEDS ORDERED: methylPREDNISolone SOD SUCC 40 MG/ML VIAL ONE (19:57)
[2016-11-24] MEDS ORDERED: LEVOFLOXACIN 500MG/D5W 100ML 100 ML IV ONE (19:58)
[2016-11-24] MEDS ORDERED: AZITHROMYCIN 500 MG in 0.9 % SODIUM CHLORIDE 250 ML IV SCH (20:00)
[2016-11-24] MEDS ORDERED: LEVOFLOXACIN 500MG/D5W 100ML 500 MG in PREMIX BAG 1 BAG IV SCH (20:00)
[2016-11-24] MEDS ORDERED: 0.9 % SODIUM CHLORIDE 250 ML IV ONE (20:26)
[2016-11-24] MEDS ORDERED: methylPREDNISolone SOD SUCC 40 MG/ML VIAL IVP SCH (21:00)
[2016-11-24] MEDS ORDERED: ENOXAPARIN SODIUM 30 MG/0.3 ML DISP.SYRIN SQ SCH (21:00)
[2016-11-24] MEDS ORDERED: ENOXAPARIN SODIUM 30 MG/0.3 ML DISP.SYRIN SQ ONE (21:57)
[2016-11-25] MEDS ORDERED: 0.9 % SODIUM CHLORIDE 1,000 ML IV ONE (04:08)
[2016-11-25] MEDS ORDERED: SALINE FLUSH 10 ML DISP.SYRIN IVF ONE (04:43)
[2016-11-25] MEDS: IPRATROPIUM/ALBUTEROL SULFATE 3 ML AMPUL.NEB NEB SCH ×2 (05:28→10:45)
[2016-11-25 07:25] LABS: BASOPHILS % 0.1 (0.0-1.5); EOSINOPHILS % 0.3 % (0.0-6.8); MEAN CORPUSCULAR HEMOGLOBIN 33.1 pg (28.0-34.0); MEAN CORPUSCULAR VOLUME 106.2 fl (80.0-100.0); MONOCYTES % 2.3 % (0.0-11.0); NEUTROPHILS # 3.8 # k/uL (1.4-7.7)
[2016-11-25 07:42] LABS: eGFR (African) > 60; eGFR (Non-African) > 60
[2016-11-25] MEDS: INSULIN REGULAR, HUMAN 100 UNIT/ML 3ML VIAL SQ SCH ×2 (07:42→12:04)
[2016-11-25] MEDS ORDERED: LEVOFLOXACIN 500 MG TABLET PO ONE (08:13)
[2016-11-25] MEDS ORDERED: AZITHROMYCIN 250 MG TABLET PO ONE (08:13)
[2016-11-25] MEDS ORDERED: predniSONE 10 MG TABLET PO ONE (08:13)
--- NOTE | 2016-11-25 08:14 | Discharge Summary ---
Discharge Summary - Discharge Sumary History of Present Illness: 85-year-old white female who is a resident at [facility]. For approximately 24 hours prior to admission. Patient was becoming more lethargic and having increasing dyspnea and shortness of breath. There is some question if the patient was running a low-grade fever. Patient seemed to have a productive sounding cough. Patient was subsequently seen in the ED for evaluation. Patient was felt to be having some hypoxia with possible COPD and [facility]. She continues to have some hypoxemia, and course rhonci with a few rales in the right base. Repeat CXR did not show any infiltrate, possible some mild pulmonary congestion. WBC count has decreased even with steroid therapy with a left shift. Patient was admitted to acute care for COPD exacerbation, possible aspiration/pneumonia developing. Condition at Discharge: Stable Home Medications: Ambulatory Orders Medication Instructions Recorded Azithromycin 500 mg PO DAILY #1 tablet 11/25/16 Levofloxacin [Levaquin] 500 mg PO DAILY #7 tablet 11/25/16 Prednisone 10 mg PO DAILY #30 tablet 11/25/16 Consultations this Visit: None Procedures this Visit: None Allergies/Adverse Reactions: Allergies Allergy/AdvReac Type Severity Reaction Status Date / Time prochlorperazine maleate Allergy Unknown Verified 11/23/16 19:14 [From Compazine] codeine [Codeine] Allergy Verified 11/23/16 19:14 prochlorperazine edisylate Allergy Verified 11/23/16 19:14 [From Compazine] Discharge Summary: Patient was admitted from [facility] with MS changes, hypoxia, and fever. Influenza testing in ER was negative. CXR was negative x 2. Concern over aspiration pneumonia so started on levaquin and zithromax. Due to wheezing, started on steroids. Also O2 and duonebs administered. Patient mental state cleared quickly and O2 requirement decreased. Upon discharge to [facility], [facility] came back with Positive Influenza A. There is influenza at the [facility]. Patient was started on tamiflu and will complete 3 days of zithromax 500 mg. She will NOT finish levofloxacin course. Also sent with prednisone taper and O2 prn. Hospital Course: Discharge Dx: Influenza A; MS changes; Hypoxia; DM. Disposition - [facility]
[2016-11-25] MEDS: OXYBUTYNIN CHLORIDE 5 MG TABLET PO SCH (08:50)
[2016-11-25] MEDS: PREGABALIN 50 MG CAPSULE PO SCH (08:51)
[2016-11-25 10:01] LABS: ADENOVIRUS DNA NEGATIVE (NEGATIVE); BORDETELLA PERTUSSIS DNA NEGATIVE (NEGATIVE); SOURCE: NASOPHARYNGEAL SWAB
--- NOTE | 2016-11-25 11:31 | Diagnostic Imaging Report ---
[facility] [address] [facility] [address] [address] Report Submission Date: Nov 23, 2016 7:30:23 PM ENCYCLOPEDIA RESEARCH WORKER Patient Study Name: LEONARD MELGOZA Date: Nov 23, 2016 7:11:52 PM ENCYCLOPEDIA RESEARCH WORKER Modality Type: CT\SR Gender: F Description: CT BRAIN W/O CONTRAST : [birth year] Institution: [facility] Physician: NERY VELÁZQUEZ Head CT without contrast CLINICAL HISTORY: Altered mental status. Confusion. TECHNIQUE: CT examination of brain is performed in contiguous axial slices without the use of contrast. Sagittal and coronal reconstructions are performed by the technologist. FINDINGS: 4th ventricle lies in a normal midline position. The ventricles and sulci are prominent secondary to atrophy. Chronic ischemic changes are present in the periventricular regions. There is no hypodense or hyperdense mass or intracranial hemorrhage. Intracranial atherosclerosis is demonstrated. IMPRESSION: Atrophy and chronic small vessel ischemic changes. Intracranial atherosclerosis. No acute intracranial changes. Electronically signed on Nov 23, 2016 7:30:23 PM ENCYCLOPEDIA RESEARCH WORKER by: René FOSTER
[2016-11-25] MEDS ORDERED: OSELTAMIVIR PHOSPHATE 75 MG CAPSULE PO ONE (13:38)
[2016-11-25] MEDS ORDERED: OSELTAMIVIR PHOSPHATE 75 MG CAPSULE PO SCH (14:00)
[2016-11-25 14:55] VITALS: BP 172/73
[2016-11-26] MEDS ORDERED: ENOXAPARIN SODIUM 30 MG/0.3 ML DISP.SYRIN SQ SCH (09:00)
== END 2016-11-25 14:30 ==
LOC: ED 17:45 → EDSTATUS 17:46 → SOUTH 20:21 → UNDOADMIN 20:21 → SOUTH 11-24 12:00 → INTOOBSV 11-24 12:00 → UNDOADMOB 11-24 12:00 → UNDODISOB 11-25 14:30
PROVIDERS: ADMIT Family Medicine; ATTEND Family Medicine
DX: J20.9 Acute bronchitis, unspecified (principal); E11.9 Type 2 diabetes mellitus without complications; E87.5 Hyperkalemia
CPT/HCPCS: 36415; 70450; 71010; 80048; 80053; 83880; 84484; 85025; 87040; 87400; 87486; 87581; 87633; 87798; 96365; 96367; 96375; 99284; J0456; J1650; J1956; J2920; J2930; J7050; G0378; G0379; J1030; J1815; J7030; J7512; S1016

== ENCOUNTER 2017-09-09 10:03 | Outpatient (CLI) | payer OTHER ==
[~2017-09-09 10:03] MED LIST: 0.9 % SODIUM CHLORIDE PF 10 ML VIAL IJ ONE; Lidocaine 1% 5ml(IM or SUTURE)(PAIN CLINIC) ONE; TRIAMCINOLONE ACETONID 40MG/ML VIAL ONE
--- NOTE | 2017-09-10 09:15 | CAUDAL ESI WITH FLUORO ---
Dear Dr. Williamson: SUBJECTIVE: I had the opportunity of following up with Ailin Thomason today as an outpatient at [facility]. As you are aware, this is a delightful 86- year-old white female I treated a few years ago for spinal stenosis at L4-L5 and an L5-S1 disk protrusion. She did get improvement at that time. On her visit today, she is a fairly poor historian, but she is giving us a history for back and bilateral lower extremity pain consistent with recurrent stenosis. There is no new imaging at this point. PHYSICAL EXAMINATION: General: The patient is well nourished, well developed, and in no apparent distress. Awake, alert, and oriented. HEENT: Pupils are equal, round, and reactive to light and accommodation. Extraocular movements intact. No facial droop. Neck: There is full range of motion of the cervical spine. No evidence of adenopathy. Thyroid is nontender, not enlarged. Carotids are without bruits. Chest: Clear to auscultation bilaterally. Normal chest excursion. Heart: Regular rate and rhythm without murmur. Abdomen: Benign. Normoactive bowel sounds. Motor/sensory: Intact in the upper and lower extremities. Moves all extremities freely. Back: There are normal cervical, thoracic and lumbar curvatures. There are negative sacroiliac joint findings bilaterally. No evidence of pain or tenderness over the facet joints. Negative piriformis bilaterally. Negative straight leg raise. No evidence of dermatomal weakness or numbness in the lower extremities. Bilateral negative femoral nerve stretch. Patellar tendons are 2+ and equal bilaterally. PROCEDURE: Caudal epidural steroid injection under fluoroscopy. DESCRIPTION OF PROCEDURE: The risks and benefits of a caudal epidural steroid injection were explained to the patient, including the risk of infection, bleeding, nerve injury, worsened pain, failure to relieve pain, spinal headache or steroid exposure risks, including hyperglycemia, hypertension, osteoporosis, and increased infectious risks. The patient understood the risks and agreed to proceed. The patient was placed on the fluoroscopy table in the prone position with a pillow underneath the abdomen. The caudal area was cleaned. AP and lateral fluoroscopic views were obtained, identifying the sacrum and sacral hiatus. The caudal epidural space was accessed from a percutaneous approach at the sacral hiatus with a 23-gauge, 3 inch needle. On entering the caudal epidural space, it was verified that there was no aspiration of blood or CSF or urine. Furthermore, the needle tip location was verified with lateral and AP fluoroscopic views. Omnipaque 240 myelogram dye was injected through the needle. The distribution of the dye was noted to be within the desired distribution within the caudal epidural space. At this point, the medication was injected into the caudal epidural space. The stylette was replaced in the needle and the needle was subsequently removed from the back. The patient tolerated the procedure without adverse sequelae. The sacral area was cleaned and a bandage was applied over the injection site. The patient was then monitored for 20 minutes following the procedure, during which time the vital signs remained stable and no adverse sequelae were noted or reported. The patient was discharged home with a stunt driver and was in good condition on discharge. ASSESSMENT: L4-L5 and L5-S1 spinal stenosis. PLAN: Caudal epidural steroid injection under fluoroscopy today. We will follow her up next month. If she is not improved, I would obtain new imaging studies. FOLLOW UP: Patient is to call for complications or worsened pain. cc: Dr. Mary FOSTER
== END 2017-09-09 10:04 ==
LOC: OUT 10:03
PROVIDERS: ATTEND Anesthesiology Pain Medicine
DX: M48.061 Spinal stenosis, lumbar region without neurogenic claudication (principal); M54.5 Low back pain; M79.604 Pain in right leg; M79.605 Pain in left leg
CPT/HCPCS: 62323; 99214; G0463; J3301; Q9966

== ENCOUNTER 2018-01-01 18:57 | Inpatient (IN) | payer OTHER ==
[2018-01-01] MEDS ORDERED: 0.9 % SODIUM CHLORIDE 1,000 ML IV ONE ×2 (19:12→22:38)
--- NOTE | 2018-01-01 19:16 | ED Physician Documentation ---
General Adult - HISTORIAN Historian: paramedics, other ([facility] staff) - HPI Chief Complaint: General Adult Onset: days ago Timing: worse Further Comments: yes (87 year old female patient sent in from [facility] for evaluation. Staff reports weakness, will not eat or drink for the past 3 days, usually is stand by assist only - will not get out of bed. Patient was started on bactrim DS on 12/27/17 for a UTI. Advanced directive on chart.) - ROS CONST: weakness NEURO/PSYCH: other (patient unable to contribute to ROS or History) - PAST HX Past History: hypertension, other (CAD, fibromyalgia, dementia, anemia, depression, GERD, physical deconditioning) Other History: diabetes Type 2 Allergies/Adverse Reactions: Allergies Allergy/AdvReac Type Severity Reaction Status Date / Time prochlorperazine maleate Allergy Unknown Verified 01/01/18 20:44 [From Compazine] codeine [Codeine] Allergy Verified 01/01/18 20:44 prochlorperazine edisylate Allergy Verified 01/01/18 20:44 [From Compazine] Home Medications: Ambulatory Orders Medication Instructions Recorded Azithromycin 500 mg PO DAILY #1 tablet 11/25/16 Levofloxacin [Levaquin] 500 mg PO DAILY #7 tablet 11/25/16 Prednisone 10 mg PO DAILY #30 tablet 11/25/16 - SOCIAL HX Smoking History: non-smoker - FAMILY HX Family History: No - VITAL SIGNS Vital Signs: Vital Signs Temp Pulse Resp BP Pulse Ox 172/73 11/25/16 10:00 - REVIEWED ASSESSMENTS Nursing Assessment Reviewed: Yes Vitals Reviewed: Yes Progress - Progress Progress: Critical lab - K 7.5; calcium gluconate, D50 and insulin given. 2L of NS started. 2008 Multiple phone calls made to reach family. 2049 Bessy, daughter returned call - updated on patient's critical status. Bessy states she has been ill and unable to come to hospital, offered admission or transfer to higher level of care. Prefer admission at [facility]. [address] Shankar, will admit to med surg. Patient much more awake and alert. Micro results reviewed from 12/22/17, sensitive to ceftriaxone, will place on IV rocephin daily, continue fluids. Patient now able to drink juice, answering simple questions. Will give kayexalate po. - EKG/XRAY/CT EKG: rhythm (SR with 1st degree AV block, rate 76) ED Results Lab/Radiology - Orders Orders: ED Orders Category Date Time Status Place IV Lock 1T Care 01/01/18 19:12 Ordered CBC/PLATELET/DIFF Stat Lab 01/01/18 19:12 Ordered CMP Stat Lab 01/01/18 19:12 Ordered 0.9 % Sodium Chloride [Normal Saline] 1,000 ml Med 01/01/18 19:12 Ordered IV NOW General Adult Physical Exam - PHYSICAL EXAM GENERAL APPEARANCE: mild distress EENT: eye inspection normal, JAMILA, dry mucous membranes RESPIRATORY: no resp distress, chest non-tender, breath sounds normal CVS: reg rate & rhythm, heart sounds normal, equal pulses, no murmur, no gallop , PMI nml, no JVD, no friction rub, 24 ABDOMEN: soft, no organomegaly, normal bowel sounds, no abdominal bruit, no distension, decreased BS BACK: normal inspection, no CVA tenderness SKIN: warm/dry, pallor EXTREMITIES: non-tender, normal range of motion, no evidence of injury, no edema , J, [employer]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
[2018-01-01 19:42] LABS: BASOPHILS % 0.1 (0.0-1.5); EOSINOPHILS % 0.2 % (0.0-6.8); MEAN CORPUSCULAR HEMOGLOBIN 33.6 pg (28.0-34.0); MEAN CORPUSCULAR VOLUME 106.7 fl (80.0-100.0); MONOCYTES % 2.2 % (0.0-11.0); NEUTROPHILS # 10.9 # k/uL (1.4-7.7)
[2018-01-01] MEDS ORDERED: DEXTROSE 50% 50 ML DISP.SYRIN IVP ONE ×2 (19:57→22:35)
[2018-01-01] MEDS ORDERED: CALCIUM GLUCONATE 100 MG/ML VIAL IV ONE (19:57)
[2018-01-01] MEDS ORDERED: INSULIN REGULAR, HUMAN 100 UNIT/ML 3ML VIAL IV ONE (19:57)
[2018-01-01] MEDS ORDERED: 0.9 % SODIUM CHLORIDE 250 ML IV ONE (20:16)
[2018-01-01] MEDS ORDERED: SODIUM POLYSTYRENE SULFONATE 15 GM/60 ML BOTTLE PO ONE (22:33)
[2018-01-02] MEDS ORDERED: cefTRIAXone SODIUM 1 GM VIAL ONE ×2 (00:52→23:46)
[2018-01-02] MEDS: cefTRIAXone SODIUM 1 GM in 0.9 % SODIUM CHLORIDE 50 ML IV SCH ×2 (01:01→23:56)
[2018-01-02 01:48] VITALS: BMI 24.3
[2018-01-02] MEDS: 0.9 % SODIUM CHLORIDE 1,000 ML IV SCH ×3 (05:34→23:56)
[2018-01-02 07:18] LABS: BASOPHILS % 0.2 (0.0-1.5); EOSINOPHILS % 0.5 % (0.0-6.8); MEAN CORPUSCULAR HEMOGLOBIN 33.2 pg (28.0-34.0); MEAN CORPUSCULAR VOLUME 106.9 fl (80.0-100.0); MONOCYTES % 3.3 % (0.0-11.0); NEUTROPHILS # 8.6 # k/uL (1.4-7.7)
--- NOTE | 2018-01-02 08:27 | History and Physical Report ---
History of Present Illnes - History of Present Illness Reason for Visit: lethargy History of Present Illness: Patient is an 87-year-old chronically ill patient who resides in [facility]. Over the last three days prior to admission the nursing staff that the patient has become more lethargic and is not been participating in activities at a normal level. Patient did have what was felt to be a urinary tract infection and was started on Bactrim several days prior to admission. Staff states that the patient complained about not feeling well. Patient became more lethargic. Patient with not eating or drinking well. Patient did not have any fever or chills. Patient denies any pain. Patient was subsequently brought to the ED for evaluation. In the ED patient was found to be markedly hypokalemic with a potassium of 7.2. Patient was given some calcium IV insulin and fluids with improvement of the potassium to 6.8. Patient did have an EKG done which showed a left bundle branch block. P waves in the end here needs for slightly peaked.Patient was subsequently admitted to the hospital for further care and evaluation. - Past Medical History Cardiac: CAD, HTN, Hyperlipidemia, Other (history of cardiomegally) [employer]I L[employer] MECH[employer]IC: CVA (? right), Other (lumbar spinal stenosis) Heme/Onc: Other (Megablastic anemia) Psych: Anxiety Musculoskeletal: Chronic low back pain Rheumatologic: Fibromyalgia Renal/: Other (Renal Mass) Endocrine: Diabetes (type 2) - Past Surgical History Past Surgical History: Cataract Removal, Other (benign tumor removed from her neck, s/p aortic valve replacement with tissue prosthesis, left carotid endarterectomy) - Past Family History Mother Family History: Father Family History: - Past Social History Smoke: Quit Alcohol: None Drugs: None Lives: Alone - Health Maintenance Health Maintenance: Influenza Vaccine, Pneumococcal Vaccine (08/22/14) Pneumonia Vaccine: Yes Resuscitation Status: Resusciation Status Resuscitation Status Do Not Resuscitate - Unable to Obtain History Unable to Obtain: Yes Review of Systems - Review of Systems Constitutional: Weakness. negative: Fever, Chills, Sweats Eyes: negative: pain, vision change ENT: negative: Ear Pain, Ear Discharge, Nose Pain, Nose Discharge, Nose Congestion Respiratory: negative: Cough, Dry, Shortness of Breath, Hemoptysis, SOB with Excertion, Pleuritic Pain, Sputum, Wheezing Cardiovascular: negative: Chest Pain, Edema, Light Headedness Gastrointestinal: Abdominal Pain (diffus). negative: Nausea, Vomiting Genitourinary: negative: Dysuria, Frequency Musculoskeletal: negative: Arm Pain, Back Pain Skin: negative: Rash Neurological: Weakness - Medications/Allergies Allergies/Adverse Reactions: Allergies Allergy/AdvReac Type Severity Reaction Status Date / Time prochlorperazine maleate Allergy Unknown Verified 01/01/18 20:44 [From Compazine] codeine [Codeine] Allergy Verified 01/01/18 20:44 prochlorperazine edisylate Allergy Verified 01/01/18 20:44 [From Compazine] Current Inpatient Medications: Current Inpatient Medications Glipizide (Glucotrol) 5 mg PO BID [facility] Hydralazine HCl (Apresoline) 25 mg PO TID [facility] Ceftriaxone Sodium 1 gm/ (Sodium Chloride) 50 mls @ 100 mls/hr IV Q24H [facility] Last Admin: 01/02/18 01:01 Dose: 100 mls/hr Sodium Chloride (Normal Saline) 1,000 mls @ 150 mls/hr IV Q10H [facility] Last Admin: 01/02/18 05:37 Dose: 150 mls/hr Oxybutynin Chloride (Ditropan) 5 mg PO BID [facility] Prednisone (Deltasone) 10 mg PO DAILY [facility] Tramadol HCl (Ultram) 50 mg PO q6hr prn pain [facility] Exam - Exam Vital Signs: Vital Signs (72 hours) 01/01/18 01/02/18 01/02/18 23:29 00:00 00:55 Temperature 98.4 F Pulse Rate 83 Pulse Rate [ 82 76 Pulse ox] Respiratory 18 16 Rate Blood Pressure 109/79 [Left Arm] Blood Pressure 134/69 [Right Arm] O2 Sat by Pulse 93 93 94 Oximetry 01/02/18 01/02/18 01/02/18 02:00 03:00 06:00 Temperature 98.4 F 97.5 F L Pulse Rate 82 88 Pulse Rate [ 76 86 Pulse ox] Respiratory 18 18 Rate Blood Pressure 134/69 [Left Arm] Blood Pressure 137/66 [Right Arm] O2 Sat by Pulse 93 93 92 Oximetry General: Alert, Oriented to Person, Cooperative, No acute distress. No: Oriented to Place, Oriented to Time HEENT: Atraumatic, PERRLA, Mouth Mucous membr. moist/[place], Nose Mucous membr. moist/[place], Dentition Normal, Hearing Grossly Normal Neck: No: Lymphadenopathy Carotids: WNL Lungs: Clear to auscultation, Normal air movement, Speaks full Sentences Cardiovascular: Regular rate, Normal S1, Normal S2, No murmurs, Other (NSR, LBBB on monitor) Abdomen: Normal bowel sounds, Soft. No: Distended (mild) Integumentary: Normal, [place], Warm, Dry Extremities: No clubbing, No cyanosis, No edema, Normal pulses Neurological: Normal speech, Strength Equal Bilat, Normal tone Psych/Mental Status: No: Mental status NL (confused), Mood NL (confused), Intact Judgment - Laboratory Results Laboratory Results: Laboratory Results 01/02/18 01/02/18 06:59 06:59 WBC 11.50 RBC 2.75 L Hgb 9.1 L Hct 29.4 L MCV 106.9 H MCH 33.2 MCHC 31.1 RDW 12.7 Plt Count 227 Neut % (Auto) 74.3 Lymph % (Auto) 20.3 [place] % (Auto) 3.3 Eos % (Auto) 0.5 Baso % (Auto) 0.2 Neut # (Auto) 8.6 H Lymph # (Auto) 2.3 [place] # (Auto) 0.4 Eos # (Auto) 0.1 Baso # (Auto) 0.0 Reactive Lymphs % 1.4 Reactive Lymphs # 0.2 Sodium 141 Potassium 6.2 H Chloride 112 H Carbon Dioxide 17 L BUN 44 H Creatinine 4.10 H Estimated Creat Clear 9 Est GFR ( Amer) 13 L Est GFR (Non-Af Amer) 11 L Glucose 38 L* Calcium 8.4 Total Bilirubin 0.5 AST 19 ALT 25 Alkaline Phosphatase 79 Total Protein 5.6 L Albumin 3.0 L Assessment/Plan - Assessment/Plan (1) Hyperkalemia Status: Acute Current Visit: Yes Assessment: Acute Renal failure, dehydration. Will conitnue with IV fluids,Kayexalate (2) Acute renal failure (ARF) Status: Acute Current Visit: Yes Qualifiers: Acute renal failure type: unspecified Qualified Code(s): N17.9 - Acute kidney failure, unspecified Assessment: possibly prerenal, dehydration, will continue with present IV fluids. (3) CAD (coronary artery disease) Status: Chronic Current Visit: Yes Qualifiers: Coronary Disease-Associated Artery/Lesion type: [place] artery [place] vs. transplanted heart: [place] heart Associated angina: without angina Qualified Code(s): I25.10 - Atherosclerotic heart disease of [place] coronary artery without angina pectoris Assessment: continue home meds (4) Diabetes type 2, controlled Status: Chronic Current Visit: No Qualifiers: Diabetes mellitus complication status: without complication (5) Hypertension Status: Chronic Current Visit: No Assessment: stable continue home meds (6) Megaloblastic anemia due to vitamin B12 deficiency Status: Chronic Current Visit: No Assessment: stable, monitor VTE Assessment - RISK FACTOR SCORE VTE RISK FACTOR SCORES: AGE OVER 60 YEARS, ANTICIPATED BED CONFINEMENT OR IMMOBILIZATION > 24 HOURS - RISK VTE MODERATE RISK: SCORE OF 2 (RISK PROXIMAL DVT 2-4%) PROPHYAXIS NEEDED
[2018-01-02] MEDS: HYDRALAZINE HCL 25 MG TABLET PO SCH ×3 (08:57→17:02)
[2018-01-02] MEDS: OXYBUTYNIN CHLORIDE 5 MG TABLET PO SCH ×2 (08:57→21:06)
[2018-01-02] MEDS ORDERED: predniSONE 10 MG TABLET PO SCH (09:00)
[2018-01-02] MEDS ORDERED: traMADol HCL 50 MG TABLET PO SCH (09:00)
[2018-01-02] MEDS ORDERED: traMADol HCL 50 MG TABLET PO PRN (09:07)
[2018-01-02] MEDS: INSULIN LISPRO 100 UNIT/ML 3ML VIAL SQ SCH ×2 (17:02→21:07)
--- NOTE | 2018-01-02 17:39 | Diagnostic Imaging Report ---
[facility]/MED SURG [facility] [address] [facility] [address] [address] Report Submission Date: Jan 02, 2018 12:57:52 PM CDT Patient Study Name: LEONARD MELGOZA Date: Jan 02, 2018 9:37:36 AM CDT Modality Type: DX Gender: F Description: ABDOMEN : 32 Institution: [facility] Physician: RONAL MUÑOZ/MED SURG Examination: Obstruction series History: KUB, DIFFUSE ABD PAIN (Hx) Comparison exam: None provided. Findings: 2 views obtained of the abdomen. Mildly prominent loops of large and small bowel in the central abdomen. Air and stool throughout the large bowel. No suspicious calcifications projecting over the renal fossa or the lower pelvic region. Right hip replacement. Generalized osteopenia and degenerative changes. Vascular calcifications. Impression: Prominent loops of large and small bowel within the central abdomen - correlate with patient's symptoms. Consider CT Abdomen/pelvis to further evaluate if clinically warranted. Electronically signed on Jan 02, 2018 12:57:52 PM CDT by: Mayur FOSTER
[2018-01-02] MEDS: METOPROLOL TARTRATE 50 MG TABLET PO SCH (21:05)
[2018-01-03] MEDS: INSULIN LISPRO 100 UNIT/ML 3ML VIAL SQ SCH ×4 (07:30→20:06)
[2018-01-03] MEDS ORDERED: predniSONE 10 MG TABLET PO SCH (09:00)
[2018-01-03] MEDS ORDERED: predniSONE 10 MG TABLET PO ONE (09:40)
[2018-01-03] MEDS: METOPROLOL TARTRATE 50 MG TABLET PO SCH ×2 (09:40→20:07)
[2018-01-03] MEDS: OXYBUTYNIN CHLORIDE 5 MG TABLET PO SCH ×2 (09:40→20:06)
[2018-01-03] MEDS: HYDRALAZINE HCL 25 MG TABLET PO SCH ×4 (09:40→17:43)
--- NOTE | 2018-01-03 10:39 | Inpatient Progress Note ---
Subjective - Required Recertification Statement I anticipate X number of days because-include discharge plan: 3 - Review of Systems Events since last encounter: Ailin's labs look better this morning, however she remains clinically very dehydrated with dry mucous membranes, and poor skin turgor. She ate very little of her breakfast today. I had considered decreasing her fluids so as not to fluid overload her, however she is Shestill so clinically dry that I think that fluid overload is not currently a concern. She is minimally verbal but denies any pain or shortness of breath. General: Denies: Chills, Night Sweats, Appetite HEENT: Denies: Head Aches Pulmonary: Denies: Dyspnea, Cough Cardiovascular: Denies: Chest Pain Gastrointestinal: Denies: Nausea Genitourinary: Denies: Dysuria Musculoskeletal: Denies: Neck Pain, Shoulder Pain Neurological: Weakness, Confusion Objective - Exam Vitals and I&O: Vital Signs Temp 97.3 F L 01/03/18 09:57 Pulse 85 01/03/18 09:57 Resp 20 01/03/18 09:57 BP 120/61 01/03/18 09:57 Pulse Ox 95 01/03/18 09:57 Intake & Output 01/02/18 01/02/18 01/03/18 11:59 23:59 11:59 Intake Total 575 2654 1100 Balance 575 2654 1100 Weight 54.431 kg 55.338 kg Intake: IV 125 1884 1050 Left Forearm 125 1884 1050 Oral 450 770 50 Other: Voiding Method Bedside Commode Bedside Commode Diaper # Voids 2 1 1 General: Oriented to Person, Discheveled HEENT: Atraumatic. No: Mouth Mucous membr. moist/[place] (very dry mucous membrnaes), Photophobia, Ptosis Neck: Supple, No JVD Lungs: Clear to auscultation Cardiovascular: Regular rate (with II/ PIETER) Abdomen: Normal bowel sounds, Soft Extremities: No clubbing, No cyanosis Skin: Dry, Decreased Turgor Neurological: Generalized Weakness Psych/Mental Status: No: Mental status NL - Results Results: Laboratory Results WBC 11.50 K/ul (4.00-12.00) 01/02/18 06:59 RBC 2.75 M/ul (3.90-5.20) L 01/02/18 06:59 Hgb 9.1 g/dL (12.0-16.0) L 01/02/18 06:59 Hct 29.4 % (34.5-46.5) L 01/02/18 06:59 MCV 106.9 fl (80.0-100.0) H 01/02/18 06:59 MCH 33.2 pg (28.0-34.0) 01/02/18 06:59 MCHC 31.1 g/dL (30.0-36.0) 01/02/18 06:59 RDW 12.7 % (11.3-14.3) 01/02/18 06:59 Plt Count 227 K/mm3 (130-400) 01/02/18 06:59 Neut % (Auto) 74.3 % (39.0-79.0) 01/02/18 06:59 Lymph % (Auto) 20.3 % (16.0-50.0) 01/02/18 06:59 [place] % (Auto) 3.3 % (0.0-11.0) 01/02/18 06:59 Eos % (Auto) 0.5 % (0.0-6.8) 01/02/18 06:59 Baso % (Auto) 0.2 (0.0-1.5) 01/02/18 06:59 Neut # (Auto) 8.6 # k/uL (1.4-7.7) H 01/02/18 06:59 Lymph # (Auto) 2.3 # k/uL (0.6-4.0) 01/02/18 06:59 [place] # (Auto) 0.4 # k/uL (0.0-0.9) 01/02/18 06:59 Eos # (Auto) 0.1 # k/uL (0.0-0.6) 01/02/18 06:59 Baso # (Auto) 0.0 # k/uL (0.0-0.5) 01/02/18 06:59 Reactive Lymphs % 1.4 % (0.0-5.0) 01/02/18 06:59 Reactive Lymphs # 0.2 # k/uL (0.0-0.8) 01/02/18 06:59 Sodium 142 mmol/L (136-145) 01/03/18 09:40 Potassium 5.6 mmol/L (3.5-5.1) H 01/03/18 09:40 Chloride 115 mmol/L (98-107) H 01/03/18 09:40 Carbon Dioxide 16 mmol/L (22-30) L 01/03/18 09:40 BUN 35 mg/dL (7-17) H 01/03/18 09:40 Creatinine 2.70 mg/dL (0.52-1.04) H 01/03/18 09:40 Estimated Creat Clear 15 01/03/18 09:40 Est GFR ( Amer) 21 (60-) L 01/03/18 09:40 Est GFR (Non-Af Amer) 18 (60-) L 01/03/18 09:40 Glucose 91 mg/dL (74-106) 01/03/18 09:40 Calcium 8.5 mg/dL (8.4-10.2) 01/03/18 09:40 Total Bilirubin 0.5 mg/dL (0.2-1.3) 01/02/18 06:59 AST 19 U/L (15-46) 01/02/18 06:59 ALT 25 U/L (13-69) 01/02/18 06:59 Alkaline Phosphatase 79 U/L (38-126) 01/02/18 06:59 Total Protein 5.6 g/dL (6.3-8.2) L 01/02/18 06:59 Albumin 3.0 g/dL (3.5-5.0) L 01/02/18 06:59 Assessment/Plan - Assessment/Plan (1) Acute renal failure (ARF) Status: Acute Current Visit: Yes Qualifiers: Acute renal failure type: unspecified Qualified Code(s): N17.9 - Acute kidney failure, unspecified Assessment: Improving with hydration (2) Dehydration Status: Acute Current Visit: Yes Assessment: Improved with hydration (3) Hyperkalemia Status: Acute Current Visit: Yes Assessment: K+ is now down from 7.5 to 5.6 (4) Azotemia Status: Acute Current Visit: No (5) Generalized weakness Status: Acute Current Visit: No Assessment: Slowly improving Plan: Continue IVF Check labs in am Hopefully back to [place] tomorrow or Friday
[2018-01-03] MEDS: 0.9 % SODIUM CHLORIDE 1,000 ML IV SCH ×3 (11:46→22:45)
[2018-01-03] MEDS ORDERED: cefTRIAXone SODIUM 1 GM VIAL ONE (23:26)
[2018-01-03] MEDS: cefTRIAXone SODIUM 1 GM in 0.9 % SODIUM CHLORIDE 50 ML IV SCH (23:30)
[2018-01-04] MEDS ORDERED: predniSONE 10 MG TABLET PO ONE (00:14)
[2018-01-04] MEDS: 0.9 % SODIUM CHLORIDE 1,000 ML IV SCH ×3 (05:48→19:45)
[2018-01-04] MEDS: INSULIN LISPRO 100 UNIT/ML 3ML VIAL SQ SCH ×4 (07:15→21:00)
[2018-01-04 07:26] LABS: MEAN CORPUSCULAR HEMOGLOBIN 33.9 pg (28.0-34.0); MEAN CORPUSCULAR VOLUME 106.9 fl (80.0-100.0)
[2018-01-04] MEDS ORDERED: predniSONE 10 MG TABLET PO SCH (09:00)
--- NOTE | 2018-01-04 09:37 | Inpatient Progress Note ---
Subjective - Required Recertification Statement I anticipate X number of days because-include discharge plan: 5 - Review of Systems Subjective: Patient refusing food and pills. Doesn't know where she is, what year, or who she is. Objective - Exam Vitals and I&O: Vital Signs Temp 96.8 F L 01/04/18 06:00 Pulse 73 01/04/18 06:00 Resp 16 01/04/18 06:00 BP 179/78 01/04/18 06:00 Pulse Ox 96 01/04/18 06:00 Intake & Output 01/03/18 01/03/18 01/04/18 11:59 23:59 11:59 Intake Total 1100 0 1700 Balance 1100 0 1700 Weight 55.338 kg Intake: IV 1050 1700 Left Forearm 1050 1700 Oral 50 0 0 Other: Voiding Method Diaper Toilet # Voids 1 2 2 General: Alert, Cooperative, No acute distress. No: Oriented to Person, Oriented to Place, Oriented to Time Lungs: Clear to auscultation, Normal air movement Cardiovascular: Regular rate Abdomen: Normal bowel sounds, Soft, Distended Extremities: No edema Skin: Other (lips dry) Psych/Mental Status: No: Mental status NL, Mood NL, Appropriate Affect, Intact Judgment - Results Results: Laboratory Results WBC 12.00 K/ul (4.00-12.00) 01/04/18 07:20 RBC 2.82 M/ul (3.90-5.20) L 01/04/18 07:20 Hgb 9.6 g/dL (12.0-16.0) L 01/04/18 07:20 Hct 30.1 % (34.5-46.5) L 01/04/18 07:20 MCV 106.9 fl (80.0-100.0) H 01/04/18 07:20 MCH 33.9 pg (28.0-34.0) 01/04/18 07:20 MCHC 31.7 g/dL (30.0-36.0) 01/04/18 07:20 RDW 12.7 % (11.3-14.3) 01/04/18 07:20 Plt Count 183 K/mm3 (130-400) 01/04/18 07:20 Neut % (Auto) 74.3 % (39.0-79.0) 01/02/18 06:59 Lymph % (Auto) 20.3 % (16.0-50.0) 01/02/18 06:59 [place] % (Auto) 3.3 % (0.0-11.0) 01/02/18 06:59 Eos % (Auto) 0.5 % (0.0-6.8) 01/02/18 06:59 Baso % (Auto) 0.2 (0.0-1.5) 01/02/18 06:59 Neut # (Auto) 8.6 # k/uL (1.4-7.7) H 01/02/18 06:59 Lymph # (Auto) 2.3 # k/uL (0.6-4.0) 01/02/18 06:59 [place] # (Auto) 0.4 # k/uL (0.0-0.9) 01/02/18 06:59 Eos # (Auto) 0.1 # k/uL (0.0-0.6) 01/02/18 06:59 Baso # (Auto) 0.0 # k/uL (0.0-0.5) 01/02/18 06:59 Reactive Lymphs % 1.4 % (0.0-5.0) 01/02/18 06:59 Reactive Lymphs # 0.2 # k/uL (0.0-0.8) 01/02/18 06:59 Sodium 140 mmol/L (136-145) 01/04/18 07:20 Potassium 5.5 mmol/L (3.5-5.1) H 01/04/18 07:20 Chloride 117 mmol/L (98-107) H 01/04/18 07:20 Carbon Dioxide 16 mmol/L (22-30) L 01/04/18 07:20 BUN 25 mg/dL (7-17) H 01/04/18 07:20 Creatinine 1.70 mg/dL (0.52-1.04) H 01/04/18 07:20 Estimated Creat Clear 24 01/04/18 07:20 Est GFR ( Amer) 37 (60-) L 01/04/18 07:20 Est GFR (Non-Af Amer) 30 (60-) L 01/04/18 07:20 Glucose 116 mg/dL (74-106) H 01/04/18 07:20 Calcium 8.8 mg/dL (8.4-10.2) 01/04/18 07:20 Total Bilirubin 0.5 mg/dL (0.2-1.3) 01/02/18 06:59 AST 19 U/L (15-46) 01/02/18 06:59 ALT 25 U/L (13-69) 01/02/18 06:59 Alkaline Phosphatase 79 U/L (38-126) 01/02/18 06:59 Total Protein 5.6 g/dL (6.3-8.2) L 01/02/18 06:59 Albumin 3.0 g/dL (3.5-5.0) L 01/02/18 06:59 Assessment/Plan - Assessment/Plan (1) Acute renal failure (ARF) Status: Acute Current Visit: Yes Qualifiers: Acute renal failure type: unspecified Qualified Code(s): N17.9 - Acute kidney failure, unspecified Plan: Improving with IVF. [facility] Wanted to be DNR. Doesn't eat or drink much, just wants to be "left alone." Will get CT of abd/pelvis today r/o abdominal pathology. No contrast due to CrCl. (2) Dehydration Status: Acute Current Visit: Yes Plan: Labs improved though still with dry lips. Will decrease IVF so we don't fluid overload her - she has a h/o CAD. Encourage po intake though that has been poor for some time. Need to consider hospice. Patient does not have a DPOA since her sister . She has always refused a feeding tube when her mentation was intact. (3) Hyperkalemia Status: Acute Current Visit: Yes Plan: Improving. Cont. IVF. (4) Urinary tract infection Status: Acute Current Visit: Yes Qualifiers: Urinary tract infection type: site unspecified Hematuria presence: without hematuria Qualified Code(s): N39.0 - Urinary tract infection, site not specified Plan: Will resubmit a urine culture today. Continue rocephin IV as poor po intake. (5) Change in mental status Status: Acute Current Visit: Yes Qualifiers: Altered mental status type: unspecified Qualified Code(s): R41.82 - Altered mental status, unspecified Plan: Will check head CT, CXR, and repeat urine culture.
[2018-01-04] MEDS: HYDRALAZINE HCL 25 MG TABLET PO SCH ×3 (09:54→18:22)
[2018-01-04] MEDS: METOPROLOL TARTRATE 50 MG TABLET PO SCH ×2 (09:55→23:00)
[2018-01-04] MEDS: OXYBUTYNIN CHLORIDE 5 MG TABLET PO SCH (09:56)
--- NOTE | 2018-01-04 13:25 | Diagnostic Imaging Report ---
[facility]/MED SURG~ [facility] [address] [facility] [address] [place] [address]. [id number] ~ ~ ~ ~ Report Submission Date: Jan 04, 2018 11:38:07 AM CDT Patient ~ Study Name: LEONARD MELGOZA ~ Date: Jan 04, 2018 10:59:56 AM CDT ~ Modality Type: DX Gender: F ~ Description: CHEST : 32 ~ Institution: [facility] Physician: [facility] WING/MED SURG ~ ~ ~ AP and lateral chest CLINICAL HISTORY: ~ Mental status changes. FINDINGS: ~ Examination of the chest in AP and lateral views demonstrates postoperative changes with multiple sternotomy wires. ~The cardiac silhouette is prominent and the aorta is atherosclerotic. ~Lungs are free of coalescent infiltrate. ~ Monitor leads superimpose the chest. IMPRESSION: ~ Postoperative chest. ~ Aortic atherosclerosis and left ventricular prominence. ~ Electronically signed on Jan 04, 2018 11:38:07 AM CDT by: René FOSTER
--- NOTE | 2018-01-04 13:26 | Diagnostic Imaging Report ---
[facility] WING/MED SURG~ [facility] [address] [facility] [address] [place], [place]. [address] ~ ~ ~ ~ Report Submission Date: Jan 04, 2018 11:35:43 AM CDT Patient ~ Study Name: LEONARD MELGOZA S ~ Date: Jan 04, 2018 10:41:49 AM CDT ~ Modality Type: CT\SR Gender: F ~ Description: A/P W/O CONTRAST : 32 ~ Institution: [facility] Physician: [facility]/MED SURG ~ ~ ~ CT abdomen and pelvis without contrast CLINICAL HISTORY: ~ Abdominal distention. ~Renal failure. TECHNIQUE: ~ CT of the abdomen and pelvis is performed without oral or intravenous administration of contrast. ~Sagittal and coronal reconstructions are performed by the technologist. FINDINGS: ~ There are bilateral pleural effusions with minimal ground-glass changes in the visualized lung bases suggesting alveolar edema. ~Liver and spleen demonstrate fairly normal attenuation with coarse splenic calcifications. ~Gallbladder is distended with multiple small gallstones. ~There is no pancreatic or adrenal abnormality. ~The kidneys are of normal size, shape and position. ~Apparent densely calcified cyst arising from the upper pole of the right kidney. ~ Vascular calcification is present in the abdominal aorta without evidence of aneurysm. ~Small umbilical hernia is present containing only fat. ~There is a right total hip replacement with metal artifact obscuring portions of the pelvis. ~There is no definite free fluid in the pelvis or abdomen. ~The uterus is surgically absent. IMPRESSION: ~ Bilateral pleural effusions with alveolar edema. ~ Cholelithiasis. Postoperative changes. ~ Vascular calcification. ~ Electronically signed on Jan 04, 2018 11:35:43 AM CDT by: René FOSTER
--- NOTE | 2018-01-04 13:27 | Diagnostic Imaging Report ---
[facility] WING/MED SURG~ [facility] [address] [facility] [address] [place], [place]. [address] ~ ~ ~ ~ Report Submission Date: Jan 04, 2018 11:37:03 AM CDT Patient ~ Study Name: LEONARD MELGOZA S ~ Date: Jan 04, 2018 10:51:49 AM CDT ~ Modality Type: CT\SR Gender: F ~ Description: BRAIN W/O CONTRAST : 32 ~ Institution: [facility] Physician: [facility]/MED SURG ~ ~ ~ Head CT without contrast CLINICAL HISTORY: ~ Mental status changes. ~ TECHNIQUE: ~ CT examination of brain is performed in contiguous axial slices without the use of contrast. ~Sagittal and coronal reconstructions are performed by the technologist. FINDINGS: ~ The 4th ventricle lies in a normal midline position. ~The ventricles and sulci are prominent secondary to atrophy. ~Chronic ischemic changes are present in the periventricular regions. 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 ~Visualized paranasal sinuses and the mastoid air cells are clear. IMPRESSION: ~ Atrophy and chronic small vessel ischemic changes. ~ Old right frontal infarct. ~ No acute intracranial changes. ~ Electronically signed on Jan 04, 2018 11:37:03 AM CDT by: René FOSTER
[2018-01-04] MEDS ORDERED: cefTRIAXone SODIUM 1 GM VIAL ONE (22:37)
[2018-01-05] MEDS: cefTRIAXone SODIUM 1 GM in 0.9 % SODIUM CHLORIDE 50 ML IV SCH (00:37)
[2018-01-05] MEDS ORDERED: 0.9 % SODIUM CHLORIDE 0 ML IV ONE (02:45)
[2018-01-05] MEDS ORDERED: LABETALOL HCL 100MG/20ML VIAL ONE (02:46)
[2018-01-05] MEDS ORDERED: LABETALOL HCL 100MG/20ML VIAL IVP STA (03:05)
[2018-01-05] MEDS: 0.9 % SODIUM CHLORIDE 1,000 ML IV SCH (03:50)
[2018-01-05] MEDS: INSULIN LISPRO 100 UNIT/ML 3ML VIAL SQ SCH ×3 (07:43→17:04)
[2018-01-05 10:09] LABS: eGFR (African) > 60; eGFR (Non-African) > 60
[2018-01-05] MEDS: HYDRALAZINE HCL 25 MG TABLET PO SCH ×4 (10:23→17:46)
[2018-01-05] MEDS: METOPROLOL TARTRATE 50 MG TABLET PO SCH ×2 (10:23→10:27)
[2018-01-05] MEDS ORDERED: FUROSEMIDE 20 MG/2 ML VIAL IVP ONE (13:37)
--- NOTE | 2018-01-05 14:02 | Inpatient Progress Note ---
Subjective - Required Recertification Statement I anticipate X number of days because-include discharge plan: 1 - Review of Systems Subjective: Patient refusing food and pills. Doesn't know where she is, what year, or who she is. Objective - Exam Vitals and I&O: Vital Signs Temp 97.5 F L 01/05/18 10:00 Pulse 76 01/05/18 13:23 Resp 22 01/05/18 13:23 BP 187/96 01/05/18 10:00 Pulse Ox 95 01/05/18 11:00 Intake & Output 01/04/18 01/05/18 01/05/18 23:59 11:59 23:59 Intake Total 1700 1400 1096 Balance 1700 1400 1096 Intake: IV 1700 1400 1096 Left Forearm 1700 1400 1096 Oral 0 0 0 Other: Voiding Method Diaper Diaper Diaper # Voids 2 1 0 # Bowel Movements 0 1 General: Alert. No: Oriented to Person, Oriented to Place, Oriented to Time, Cooperative Lungs: Clear to auscultation Cardiovascular: Regular rate - Results Results: Laboratory Results WBC 12.00 K/ul (4.00-12.00) 01/04/18 07:20 RBC 2.82 M/ul (3.90-5.20) L 01/04/18 07:20 Hgb 9.6 g/dL (12.0-16.0) L 01/04/18 07:20 Hct 30.1 % (34.5-46.5) L 01/04/18 07:20 MCV 106.9 fl (80.0-100.0) H 01/04/18 07:20 MCH 33.9 pg (28.0-34.0) 01/04/18 07:20 MCHC 31.7 g/dL (30.0-36.0) 01/04/18 07:20 RDW 12.7 % (11.3-14.3) 01/04/18 07:20 Plt Count 183 K/mm3 (130-400) 01/04/18 07:20 Neut % (Auto) 74.3 % (39.0-79.0) 01/02/18 06:59 Lymph % (Auto) 20.3 % (16.0-50.0) 01/02/18 06:59 [place] % (Auto) 3.3 % (0.0-11.0) 01/02/18 06:59 Eos % (Auto) 0.5 % (0.0-6.8) 01/02/18 06:59 Baso % (Auto) 0.2 (0.0-1.5) 01/02/18 06:59 Neut # (Auto) 8.6 # k/uL (1.4-7.7) H 01/02/18 06:59 Lymph # (Auto) 2.3 # k/uL (0.6-4.0) 01/02/18 06:59 [place] # (Auto) 0.4 # k/uL (0.0-0.9) 01/02/18 06:59 Eos # (Auto) 0.1 # k/uL (0.0-0.6) 01/02/18 06:59 Baso # (Auto) 0.0 # k/uL (0.0-0.5) 01/02/18 06:59 Reactive Lymphs % 1.4 % (0.0-5.0) 01/02/18 06:59 Reactive Lymphs # 0.2 # k/uL (0.0-0.8) 01/02/18 06:59 Sodium 143 mmol/L (136-145) 01/05/18 09:40 Potassium 5.1 mmol/L (3.5-5.1) 01/05/18 09:40 Chloride 117 mmol/L (98-107) H 01/05/18 09:40 Carbon Dioxide 15 mmol/L (22-30) L 01/05/18 09:40 BUN 15 mg/dL (7-17) 01/05/18 09:40 Creatinine 1.00 mg/dL (0.52-1.04) 01/05/18 09:40 Estimated Creat Clear 41 01/05/18 09:40 Est GFR ( Amer) > 60 (60-) 01/05/18 09:40 Est GFR (Non-Af Amer) > 60 (60-) 01/05/18 09:40 Glucose 102 mg/dL (74-106) 01/05/18 09:40 Calcium 8.9 mg/dL (8.4-10.2) 01/05/18 09:40 Total Bilirubin 1.1 mg/dL (0.2-1.3) 01/05/18 09:40 AST 30 U/L (15-46) 01/05/18 09:40 ALT 13 U/L (13-69) 01/05/18 09:40 Alkaline Phosphatase 59 U/L (38-126) 01/05/18 09:40 Total Protein 6.3 g/dL (6.3-8.2) 01/05/18 09:40 Albumin 3.2 g/dL (3.5-5.0) L 01/05/18 09:40 Assessment/Plan - Assessment/Plan (1) Acute renal failure (ARF) Status: Acute Current Visit: Yes Qualifiers: Acute renal failure type: unspecified Qualified Code(s): N17.9 - Acute kidney failure, unspecified Plan: Resolved. (2) Dehydration Status: Acute Current Visit: Yes Plan: Resolved but patient is refusing anything oral. She clinches her teeth shut and if we are able to get anything in her mouth, she immediately spits it out. (3) Hyperkalemia Status: Acute Current Visit: Yes (4) Urinary tract infection Status: Acute Current Visit: Yes Qualifiers: Urinary tract infection type: site unspecified Hematuria presence: without hematuria Qualified Code(s): N39.0 - Urinary tract infection, site not specified Plan: Finishing IV antibiotics for UTI today. (5) Change in mental status Status: Acute Current Visit: Yes Qualifiers: Altered mental status type: unspecified Qualified Code(s): R41.82 - Altered mental status, unspecified
[2018-01-06] MEDS ORDERED: cefTRIAXone SODIUM 1 GM VIAL ONE (00:31)
[2018-01-06] MEDS: cefTRIAXone SODIUM 1 GM in 0.9 % SODIUM CHLORIDE 50 ML IV SCH (00:35)
[2018-01-06] MEDS: METOPROLOL TARTRATE 50 MG TABLET PO SCH ×2 (00:45→09:36)
[2018-01-06] MEDS: INSULIN LISPRO 100 UNIT/ML 3ML VIAL SQ SCH ×3 (00:45→12:47)
--- NOTE | 2018-01-06 07:53 | Discharge Summary ---
Discharge Summary - Discharge Sumary History of Present Illness: Patient is an 87-year-old chronically ill patient who resides in [facility]. Over the last three days prior to admission the nursing staff that the patient has become more lethargic and is not been participating in activities at a normal level. Patient did have what was felt to be a urinary tract infection and was started on Bactrim several days prior to admission. Staff states that the patient complained about not feeling well. Patient became more lethargic. Patient with not eating or drinking well. Patient did not have any fever or chills. Patient denies any pain. Patient was subsequently brought to the ED for evaluation. In the ED patient was found to be markedly hypokalemic with a potassium of 7.2. Patient was given some calcium IV insulin and fluids with improvement of the potassium to 6.8. Patient did have an EKG done which showed a left bundle branch block. P waves in the end here needs for slightly peaked.Patient was subsequently admitted to the hospital for further care and evaluation. Condition at Discharge: Guarded Consultations this Visit: None Procedures this Visit: None Allergies/Adverse Reactions: Allergies Allergy/AdvReac Type Severity Reaction Status Date / Time prochlorperazine maleate Allergy Unknown Verified 01/01/18 20:44 [From Compazine] codeine [Codeine] Allergy Verified 01/01/18 20:44 prochlorperazine edisylate Allergy Verified 01/01/18 20:44 [From Compazine] Patient Problems: Current Active Problems Problem Status Onset Acute renal failure (ARF) Acute Change in mental status Acute Dehydration Acute Hyperkalemia Acute Urinary tract infection Acute CAD (coronary artery disease) Chronic Discharge Summary: Patient was treated with aggressive IV hydration. Creatinine and potassium responded well. However patient's mental status did not improve. CT of head showed old infarct. CT abdomen normal. Suspect patient has had a stroke however family agrees it wouldn't change treatment of patient to transfer for MRI. BP did run 180 but patient refused any oral meds. IV labetalol was used once to bring BP down. Rocephin was used to treat UTI she was on as an outpatient. Patient has been "dwindling" for some time with decreased po intake. This was evident in the hospital with her refusing to eat. After discussion with daughter, Bessy Thomason, and [facility] staff, it was elected to transfer patient back to [facility] for comfort care. Ambulance transfer was required as patient could not safely support herself in a wheelchair. Hospital Course: Discharge Dx - Mental Status Changes. ARF. Dehydration. HTN. Disposition - [facility]
[2018-01-06] MEDS ORDERED: predniSONE 10 MG TABLET PO SCH (09:00)
[2018-01-06] MEDS: HYDRALAZINE HCL 25 MG TABLET PO SCH ×2 (09:35→12:49)
[2018-01-06 12:59] VITALS: BP 185/104
[2018-01-08] MEDS ORDERED: predniSONE 10 MG TABLET PO SCH (09:00)
== END 2018-01-06 13:02 | DRG 641 ==
LOC: ED 18:57 → SOUTH 22:57
PROVIDERS: ADMIT Family Medicine; ATTEND Family Medicine
DX: E87.5 Hyperkalemia (principal); N17.9 Acute kidney failure, unspecified; R41.82 Altered mental status, unspecified; I25.10 Atherosclerotic heart disease of native coronary artery without angina pectoris; E11.9 Type 2 diabetes mellitus without complications; I10 Essential (primary) hypertension; D53.1 Other megaloblastic anemias, not elsewhere classified
CPT/HCPCS: 36415; 70450; 71046; 74018; 74176; 80048; 80053; 85025; 85027; 93005; J0610; J0696; J1815; J1940; J3490; J7030; J7050; J7512; 96365; 96366; 96375; 99222; 99232; 99238; 99284; S1016